=== PATIENT | female | born 1985 | race Caucasian/White ===

== ENCOUNTER 2017-01-28 18:48 | Inpatient (IN) | payer OTHER ==
--- NOTE | ~2017-01-28 | CR72 ---
[facility] A Service of [facility] RADIOLOGY TEXT RESULTS PATIENT: YAYO YODER LOCATION: [address] : [birth year] UNIT #: [id number] AGE: [address]: Heather Byrne MD SEX: F ORDER DR: [id number] [facility] [address] [facility]. [place], [place] [address] [id number] I MR#: [id number] Acc #: [id number] NAME: YAYO YODER : 1985 SEX: F STUDY DATE/TIME: 02/02/2017 5:02 UNIT: [facility] ROOM: [facility] STUDY DESCRIPTION: CR Chest Single View Portable Attending Physician: Heather Byrne M.D. Ordering Physician: Samira Chiu M.D. Primary Care Physician: No Primary Care Physician MEDICAL IMAGING REPORT This report is preliminary unless electronic signature is present EXAM AP portable chest. DATE OF EXAM 02/02/2017 at 05:02. HISTORY Intubated. Shortness of breath. Pneumonia. Septic SI joints. Symptoms began 01/29/2017. COMPARISON AP portable chest, 02/01/2017. FINDINGS Diffuse interstitial and alveolar disease changes of the right lung appears slightly increased in the right upper lobe. The left basilar airspace disease appears new or increasing when compared to prior exam. There is a probable small right pleural effusion which is stable. Heart size is stable. ET tube remains approximately 2.3 cm above the sarbjit. Enteric feeding tube extends below the diaphragm, with the tip not included in the field of view. IMPRESSION 1. Right toi-po-nhvbw lung zone airspace disease with small right pleural effusion appears unchanged. There appears to be new or increasing airspace disease in the retrocardiac left lower lobe. 2. Supporting lines and tubes appear stable. No visible pneumothorax. Dictated by... Jenn Stern M.D. THIS IS AN ELECTRONICALLY VERIFIED REPORT [facility] A Service of [facility] RADIOLOGY TEXT RESULTS PATIENT: YAYO YODER LOCATION: [address] : [birth year] UNIT #: [id number] AGE: [address]: Heather Byrne MD SEX: F ORDER DR: Jenn Stern M.D. at 02/03/2017 9:59 PM ATA/gala TD: 02/02/2017 23:48 JOB #: [id number] MEDICAL IMAGING REPORT COPY
--- NOTE | ~2017-01-28 | CT57 ---
[facility] A Service of [facility] RADIOLOGY TEXT RESULTS PATIENT: YAYO YODER LOCATION: [address] : [birth year] UNIT #: [id number] AGE: [address]: Heather Byrne MD SEX: F ORDER DR: [id number] [facility] [address] [facility]. [place], [place] [address] [id number] I MR#: [id number] Acc #: [id number] NAME: YAYO YODER : 1985 SEX: F STUDY DATE/TIME: UNIT: [facility] ROOM: [facility] STUDY DESCRIPTION: CT Chest Wo Cont Attending Physician: Heather Byrne M.D. Ordering Physician: Samira Chiu M.D. Primary Care Physician: No Primary Care Physician MEDICAL IMAGING REPORT This report is preliminary unless electronic signature is present EXAM CT chest without contrast 02/06/2017 1248 hours HISTORY 31-year-old woman with history of pneumonia since 01/29/2017. Patient complains of shortness of air and cough for [address] chest 01/29/2017 TECHNIQUE Helical noncontrasted images were obtained from the lung apices through the adrenal glands. Sagittal and coronal reconstructions were performed. Total exam DLP 768 mGy-cm. This CT exam was performed with one or more of the following radiation dose reduction techniques: Automatic exposure control, adjustment of mA and/or kV according to patient size, and iterative reconstruction. FINDINGS Images through the thoracic inlet demonstrate no thyroid lesion. There is a left central venous catheter with tip at junction of SVC and right atrium. There is an enteric tube present with tip extending towards the duodenum. There is trace pericardial fluid. There are small dependent bilateral pleural effusions similar to prior study. There is no definite adenopathy. There are bilateral breast implants with increase in diffuse subcutaneous edema over the chest wall and lateral chest extending into the flanks of the abdomen right greater than left suggesting anasarca which is new or increased. The lungs demonstrate interval improvement in the cavitary nodules. There is some linear bandlike scarring at site of previous upper lobe nodules. In the left upper lobe there was a 1.9 cm ground-glass nodule which is now a 1.6 cm cavitary nodule. Other smaller cavitary lesions now have STS. [facility] A Service of [facility] RADIOLOGY TEXT RESULTS PATIENT: YAYO YODER LOCATION: [facility]IC[facility]2 CICCU2-11 : [birth year] UNIT #: [id number] AGE: [address]: Heather Byrne MD SEX: F ORDER DR: resolved or represent a band-like density. There is a new area of ovoid density in the lateral pleura of the lingula on image 31 measuring 1.6 cm. There are persistent airspace changes right greater than left lung base somewhat improved. This could represent pneumonia or atelectasis. Pneumonia is favored on the right. Atelectasis on the left. Limited views through the upper abdomen demonstrate no definite liver or adrenal lesion. There is a small amount of ascites which is also new. Mild splenomegaly persists. IMPRESSION 1. Chest CT demonstrates improvement of the bilateral pulmonary parenchymal nodules some of which were cavitary. Previous nodules which were not cavitary have decreased in size and cavitated since 01/29/2017. The previous nodules which were previously cavitary have decreased and now represent linear band-like areas of scar. There are persistent small dependent pleural effusions with bibasilar airspace changes right greater than left. Basilar changes could represent atelectasis or pneumonia. Infection is favored at the right base with atelectasis favored at the left base. 2. There is a new noncavitary nodule laterally in the lingula on image 31 measuring 1.6 cm. These nodules most likely represents septic emboli. 3. There is diffuse anasarca over the chest and upper abdomen with new ascites in the abdomen. Etiology for this is not clear. STAT * RESULT Dictated by... Arielle Kan M.D. THIS IS AN ELECTRONICALLY VERIFIED REPORT Arielle Kan M.D. at 02/06/2017 2:31 PM CAITLIN/juvenal TD: 02/06/2017 13:38 JOB #: [id number] MEDICAL IMAGING REPORT COPY
--- NOTE | ~2017-01-28 | CO ---
Unit #: [id number] #: [id number] Patient: YAYO YODER [id number] [address] [address] [id number] I MR#: [id number] NAME: YAYO YODER ROOM: 22643 Age: 31 Sex: F Admission Date: 01/29/2017 : 1985 Attending Physician: Matthew Cid M.D. Primary Care Physician: No Primary Care Physician Consultation Date: 01/29/2017 CONSULTATION REPORT REASON FOR CONSULTATION Possible left hip septic arthritis. HISTORY OF PRESENT ILLNESS Yayo is a 31-year-old female who presented to the emergency room with sepsis and left low back pain radiating down her leg. Apparently it has been going on for a couple of months. On examination she notes significant pain. She is not answering questions or providing history on presentation today. PAST MEDICAL AND SURGICAL HISTORY Unable to obtain. MEDICATIONS Unable to obtain. SOCIAL HISTORY Unable to obtain. ALLERGIES Unable to obtain. REVIEW OF SYSTEMS Unable to obtain. PHYSICAL EXAMINATION GENERAL: This is a sick-appearing 31-year-old female in the emergency room on multiple monitors and a central line. She is in no acute distress but does appear ill. HEAD/NECK: Head is atraumatic and normocephalic. Cervical spine midline. Mucous membranes are dry. She is able to move her head and neck without difficulty. LUNGS: Breathing is shallow. CARDIAC: Pulse is tachycardic but regular rhythm. ABDOMEN: Nondistended and nontender. EXTREMITIES: No clubbing, cyanosis or edema of the extremities. No appreciable skin lesions. There is tenderness to palpation of the left shoulder and pain with motion of the left shoulder. She also has discomfort with motion of the left lower extremity, particularly in the hip region. DIAGNOSTIC STUDIES IMAGING: MRI of the lumbar spine and sacrum reviewed. There appears to Unit #: [id number] #: [id number] Patient: YAYO YODER be a left septic sacroiliac join and iliacus abscess. IMPRESSION A 31-year-old female with sepsis and left septic sacroiliac joint and iliacus abscess. PLAN With regard to the septic SI joint and iliacus abscess, I would have Spine see her as well as possibly have an IR aspiration if indicated. Currently she needs medical support and will be going to the ICU. We will further evaluate the left shoulder depending on symptoms. This was discussed with the nurse. Further recommendations to follow. Dictated by... Jackson Bird M.D. BREANN/jyoti TD: 01/29/2017 17:49 JOB #: [id number] CONSULTATION REPORT X X CONSULTATION REPORT
--- NOTE | ~2017-01-28 | MR112 ---
[facility] A Service of [facility] RADIOLOGY TEXT RESULTS PATIENT: YAYO YODER [facility] [birth year] UNIT #: [id number] AGE: [address]: Matthew Cid MD SEX: F ORDER DR: [id number] [facility] [address] [facility]. [place], [place] [address] [id number] I MR#: [id number] Acc #: [id number] NAME: YAYO YODER : 1985 SEX: F STUDY DATE/TIME: 01/29/2017 00:33 UNIT: [facility] ROOM: 18164 STUDY DESCRIPTION: MR Lumbar WWo Contrast Attending Physician: Matthew Cid M.D. Ordering Physician: Lyle King Aprn Primary Care Physician: No Primary Care Physician MEDICAL IMAGING REPORT This report is preliminary unless electronic signature is present EXAM MR lumbar spine 01/29/2017 at 02:55. INDICATIONS Low back pain radiating to the legs intermittently for 2 months. Patient is a heroin user. TECHNIQUE Axial and sagittal multi-sequence images were obtained through the lumbar spine in a high field strength magnet before and after the IV administration of 14 mL of MultiHance contrast. COMPARISON No comparison MRI. FINDINGS Lumbar alignment is normal. Bone marrow signal is normal. There are no compression fractures. Conus terminates at the L1 level and is normal in caliber and signal intensity. The intervertebral discs are normal. No bulging or herniation is seen. There is no central canal or neural foraminal stenosis. No pathologic contrast enhancement is seen in the spine to suggest osteomyelitis or epidural abscess. There is an abnormal appearance to the left sacroiliac joint. This is incompletely evaluated. Please see the MRI sacrum report, dictated separately. This probably reflects septic arthritis. IMPRESSION 1. Lumbar spine MRI is normal. 2. No malalignment. No fracture. 3. No abnormal enhancement. No evidence of osteomyelitis or diskitis. No evidence of epidural abscess. 4. Abnormal appearance of the left SI joint is only partially seen. It probably reflects septic arthritis. Please see the MRI sacrum report [facility] A Service of [facility] RADIOLOGY TEXT RESULTS PATIENT: YAYO YODER LOCATION: [address] : [birth year] UNIT #: [id number] AGE: [address]: Matthew Cid MD SEX: F ORDER DR: dictated separately from today. Dictated by... Masood Craft Jr., M.D. THIS IS AN ELECTRONICALLY VERIFIED REPORT Masood Craft Jr., M.D. at 01/29/2017 10:01 PM DAI/kleber TD: 01/29/2017 10:59 JOB #: [id number] MEDICAL IMAGING REPORT COPY
--- NOTE | ~2017-01-28 | CR72 ---
[facility] A Service of [facility] RADIOLOGY TEXT RESULTS PATIENT: YAYO YODER LOCATION: [address] : [birth year] UNIT #: [id number] AGE: [address]: Matthew Cid MD SEX: F ORDER DR: [id number] [facility] [address] [facility]. [place], [place] [address] [id number] I MR#: [id number] Acc #: [id number] NAME: YAYO YODER : 1985 SEX: F STUDY DATE/TIME: 01/31/2017 11:55 UNIT: [facility] ROOM: [facility] STUDY DESCRIPTION: CR Chest Single View Portable Attending Physician: Matthew Cid M.D. Ordering Physician: Samira Chiu M.D. Primary Care Physician: No Primary Care Physician MEDICAL IMAGING REPORT This report is preliminary unless electronic signature is present EXAM Portable chest. HISTORY Evaluate endotracheal tube placement. Followup infiltrates. FINDINGS This portable view of the chest is compared with earlier the same day. Endotracheal tube has been added and the tip is 3 cm above the sarbjit. Right midlung and lower lobe infiltrate and probable right effusion are stable. I believe there is some medial left base infiltrate as well. The Dobbhoff tube has its tip below the diaphragm. Dictated by... Norberto Wang M.D. THIS IS AN ELECTRONICALLY VERIFIED REPORT Norberto Wang M.D. at 01/31/2017 2:17 PM FARHAT/heladio TD: 01/31/2017 13:55 JOB #: [id number] MEDICAL IMAGING REPORT COPY
--- NOTE | ~2017-01-28 | A ---
[facility] Nutrition Therapy DATE: 01/31/17 Patient: YAYO YODER Physician: ADRI Address: [address] [facility] Room/Bed: [address], Zip: [place] [address] Admit Date: 01/29/17 Date of : [birth year] Height: 5 2 Weight: 115 52.5 NUTRITIONAL ASSESSMENT: REASON: Consult re: tube feeding recommendations Admitting Dx: 31 y/o female admitted with septic emboli and PNA PMH: ETOH/meth/heroin abuse, PNA, sciatica, 1 ppd smoker Anthropometrics: Ht: 62", Wt: 52.3 kg (115 lbs), BMI: 21 Labs: Na 131, K+ 3.1, Glucose 125, Phos 2.1 (01/29) Meds: Pitressin (vasopressin), Levophed, NACL, KCL, MGSO4, Solu-cortef, Fentanyl, Versed I/O & Bowel function: LBM 01/30 Skin Integrity: Redness coccyx, track corado SHERWIN arms, no edema Estimated Nutrition Needs: 3439-5187 kcals per day (25-30 kcals/kg) 52-63 g protein per day (1.0-1.2 g/kg) Fluids consistent with kcal needs or per MD Assessment: Chart reviewed, events noted. RD discussed patient with RN earlier today during rounds, she was on room air tolerating a regular diet. RD received consult for EN recs during lunch, spoke with RN on the phone who stated the patient is now intubated. She is sedated with Fentanyl and Versed on 2 pressors. She has hx of regular ETOH/meth/heroin use and was talking about wanting to get clean. She has septic arthritis in her hip, was defiant of care initially but is now participating in her care. 0 points scored on the malnutrition risk screen. Patient is at risk for refeeding syndrome, see recs below. Will follow hospital course. Dx: Inadequate oral intake r/t clinical condition AEB intubation, NPO, need for EN. Intervention: EN recs as stated below Monitoring, Evaluation and Goals: 1. Nutrition support consistent with estimated needs. 2. Labs WNL (lytes, glucose). Monitor: Per protocol, criteria to determine if above goals met [facility] Nutrition Therapy DATE: 01/31/17 Patient: YAYO YODER Physician: ADRI Address: [address] [facility] Room/Bed: [address], Zip: [place] [address] Admit Date: 01/29/17 Date of : [birth year] Height: 5 2 Weight: 115 52.5 Recommendations: 1. Replace K+ and Phos (if needed, Phos low on 01/29). Recheck Phos with next lab draw. 2. Once medically feasible start enteral nutrition with Osmolite 1.5 @ 20 ml/hr. Check lytes q 6 hours and replete to WNL as needed, as the patient is at risk for refeeding syndrome due to hx of drug and alcohol abuse. If lytes are WNL increase feeds by 10 ml q 8 hours until goal rate of 45 ml/hr is reached, to provide 1620 kcals, 68 g protein and 821 ml water. Once at goal rate flush with 200 ml free water QID or per MD noting hyponatremia. RD will follow hospital course Moderate-severe nutrition risk Respectfully, Judith Brown, RD, LD [facility] cc: client file
--- NOTE | ~2017-01-28 | MR158 ---
[facility] A Service of [facility] RADIOLOGY TEXT RESULTS PATIENT: YAYO YODER LOCATION: [facility] [address]-69 : [birth year] UNIT #: [id number] AGE: [address]: Matthew Cid MD SEX: F ORDER DR: [id number] [facility] [address] [place], [place] [address] [id number] I MR#: [id number] Acc #: [id number] NAME: YAYO YODER : 1985 SEX: F STUDY DATE/TIME: 01/29/2017 2:54 UNIT: [facility] ROOM: 76475 STUDY DESCRIPTION: MR Sacrum WWo Contrast Attending Physician: Matthew Cid M.D. Ordering Physician: Lyle King Aprn Primary Care Physician: No Primary Care Physician [facility] CENTER REPORT This report is preliminary unless electronic signature is present. EXAM MRI of the sacrum with without contrast. HISTORY 31-year-old female IV drug abuser, history of MRSA, complains of low back pain off and on for [address] abdomen and pelvis 01/28/2017. TECHNIQUE Multiplanar multiecho imaging was performed of the sacrum utilizing a high field magnet dedicated protocol. Axial T1-weighted images were performed following IV gadolinium. FINDINGS The examination demonstrates marrow edema along both sides of the left SI joint with fluid in the left SI joint. This enhances postcontrast. Anterior to the left SI joint there is a peripherally enhancing fluid collection compatible with a abscess which extends into the left iliacus muscle. Abscess is at least 5 cm cephalocaudal dimension x about 2.3 x 1.5 cm in greatest transverse dimensions. There is also some edema and enhancement within the left deep gluteal musculature. Visualized internal pelvic structures unremarkable. The right SI joint appears normal. Visualized lower lumbar spine unremarkable. Please see separate report of lumbar spine for details. IMPRESSION MRI findings compatible with septic arthritis involving the left SI joint with a sizeable abscess involving the left iliacus muscle as detailed above. Marrow edema and marrow enhancement within the adjacent sacrum and iliac bone could represent reactive changes, though early osteomyelitis not excluded. No gross destruction identified. However, CT scan STS. [facility] A Service of [facility] & [facility] RADIOLOGY TEXT RESULTS PATIENT: YAYO YODER LOCATION: [facility] [address]-47 : [birth year] UNIT #: [id number] AGE: [address]: Matthew Cid MD SEX: F ORDER DR: performed on 01/28/2017 did demonstrate some regional osteopenia, and this could represent early osteolysis and early osteomyelitis. Dictated by... Edson Quintanilla M.D. THIS IS AN ELECTRONICALLY VERIFIED REPORT Edson Quintanilla M.D. at 01/29/2017 4:59 PM MAYTE/kleber TD: 01/29/2017 11:16 JOB #: [id number] MRI CENTER REPORT COPY
--- NOTE | ~2017-01-28 | CR72 ---
[facility] A Service of [facility] RADIOLOGY TEXT RESULTS PATIENT: YAYO YODER LOCATION: [address] : [birth year] UNIT #: [id number] AGE: [address]: Matthew Cid MD SEX: F ORDER DR: [id number] [facility] [address] [facility]. [place], [place] [address] [id number] I MR#: [id number] Acc #: [id number] NAME: YAYO YODER : 1985 SEX: F STUDY DATE/TIME: 01/31/2017 05:03 [facility] STUDY DESCRIPTION: CR Chest Single View Portable Attending Physician: Matthew Cid M.D. Ordering Physician: Crys Vasquez M.D. Primary Care Physician: Primary Care Physician No MEDICAL IMAGING REPORT This report is preliminary unless electronic signature is present EXAM Portable chest 01/31 at 0503 INDICATIONS Sepsis. Shortness of air. Heroin abuser. FINDINGS AP portable chest compared with 01/30/2017. Heart size stable. Left IJ line remains in the SVC. There has been marked interval worsening of consolidations throughout the right lung. There is increasing right pleural fluid. There are faint infiltrates noted in the left uhq-jo-apamv lung. No pneumothorax. Dictated by... Masood Craft Jr., M.D. THIS IS AN ELECTRONICALLY VERIFIED REPORT Masood Craft Jr., M.D. at 01/31/2017 10:03 PM DAI/urvashi TD: 01/31/2017 08:36 JOB #: [id number] MEDICAL IMAGING REPORT COPY
--- NOTE | ~2017-01-28 | CR72 ---
[facility] A Service of [facility] RADIOLOGY TEXT RESULTS PATIENT: YAYO YODER LOCATION: [facility] 553-01 : [birth year] UNIT #: [id number] AGE: [address]: Heather Byrne MD SEX: F ORDER DR: [id number] [facility] [address] [facility]. [place], [place] [address] [id number] I MR#: [id number] Acc #: [id number] NAME: YAYO YODER : 1985 SEX: F STUDY DATE/TIME: 02/06/2017 3:24 UNIT: [facility] ROOM: [facility] STUDY DESCRIPTION: CR Chest Single View Portable Attending Physician: Heather Byrne M.D. Ordering Physician: Samira Chiu M.D. Primary Care Physician: No Primary Care Physician MEDICAL IMAGING REPORT This report is preliminary unless electronic signature is present EXAM AP portable chest DATE 02/06/2017 HISTORY Pneumonia, hypotension, septic emboli. Symptoms began 01/29/2017. IV drug use. AP portable chest 02/05/[address] chest 01/29/2017. FINDINGS Patchy peripheral bilateral zry-qs-muigf lung zone airspace disease with more dense consolidation in the right lower lobe and small layering right pleural effusion again noted. There is improved aeration in the left lower lobe compared to yesterday's exam. Heart size is within normal limits. ET tube has been removed. Dobbhoff tube and left IJ central line remain. No visible pneumothorax. IMPRESSION 1. Patchy peripheral mid to lower lung zone disease with more confluent consolidation in the right lower lobe and small right pleural effusion. Correlate clinically for pneumonia and/or of pulmonary emboli. The left lower lobe aeration appears improved compared to 02/05/2017. 2. ET tube has been removed. 3. No visible pneumothorax. Dictated by... Jenn Stern M.D. THIS IS AN ELECTRONICALLY VERIFIED REPORT [facility] A Service of [facility] RADIOLOGY TEXT RESULTS PATIENT: YAYO YODER LOCATION: [facility] 553-01 : [birth year] UNIT #: [id number] AGE: [address]: Heather Byrne MD SEX: F ORDER DR: Jenn Stern M.D. at 02/06/2017 10:25 PM ATA/markell TD: 02/06/2017 12:26 JOB #: [id number] MEDICAL IMAGING REPORT COPY
--- NOTE | ~2017-01-28 | CT4 ---
[facility] A Service of [facility] RADIOLOGY TEXT RESULTS PATIENT: YAYO YODER LOCATION: [facility] [address]-71 : [birth year] UNIT #: [id number] AGE: [address]: Matthew Cid MD SEX: F ORDER DR: [id number] [facility] [address] [place], [place] [address] [id number] I MR#: [id number] Acc #: [id number] NAME: YAYO YODER : 1985 SEX: F STUDY DATE/TIME: 01/28/2017 20:58 UNIT: [facility] ROOM: 26023 STUDY DESCRIPTION: CT Abd and Pelv Wo Cont Attending Physician: Matthew Cid M.D. Ordering Physician: Ed Dane Victoria M.D. Primary Care Physician: No Primary Care Physician MEDICAL IMAGING REPORT This report is preliminary unless electronic signature is present EXAMINATION CT abdomen and pelvis without contrast. DATE 01/28/2017 HISTORY Low back pain radiating to left leg. Left side pain. Symptoms present 2 months intermittently. COMPARISON No prior CT abdomen and pelvis for comparison at this institution. PROCEDURE 3 mm noncontrast axial images through the abdomen and pelvis. Enteric contrast was not administered. This CT exam was performed with one or more of the following radiation dose reduction techniques: automatic exposure control, adjustment of mA and/or kV according to patient size, and iterative reconstruction. FINDINGS ABDOMEN FINDINGS: The spleen is enlarged measuring 14.3 cm craniocaudal. No focal splenic lesion is identified. The noncontrast appearance of the liver, gallbladder, pancreas, adrenals and kidneys is within normal limits. No urinary tract stone or hydronephrosis is seen. Patchy peripheral nodular densities are demonstrated within both lower lung zones, with subpleural cystic or cavitary lesions bilaterally which are nonspecific and could represent changes of septic pulmonary emboli. Bilateral breast augmentation changes are present. Zjhgykvk-ux-hvxds stool burden in the ascending and transverse colon. No obstructing etiology is seen. No abnormal small bowel dilation. No [facility] A Service [facility] RADIOLOGY TEXT RESULTS PATIENT: YAYO YODER LOCATION: [facility] [id number] : [birth year] UNIT #: [id number] AGE: [address]: Matthew Cid MD SEX: F ORDER DR: pathologically enlarged lymph nodes are identified. PELVIS FINDINGS: Urinary bladder, uterus and rectum are within normal limits. No pelvic adenopathy or free fluid is seen. Abnormal appearance of left sacroiliac joint with what appears to be lucency or bony demineralization along both the sacral and iliac margins. Lumbar spine appears unremarkable. IMPRESSION 1. Abnormal appearance of the left sacroiliac joint with lucency or bony demineralization along both the sacral and iliac margins of the joint. Findings are nonspecific. All findings could be related to a somewhat unusual manifestation of degenerative change, it could represent SI joint infection in the appropriate clinical context. MRI may prove helpful for further evaluation if deemed clinically appropriate. 2. Splenomegaly, 14.3 cm. No focal splenic lesion. 3. Patchy peripheral nodular densities within the bilateral lower lobes. Thin-walled cystic or cavitary lesions are also demonstrated predominately within the right middle lobe and right lower lobe. The findings are nonspecific but may represent changes of septic pulmonary emboli. 4. Moderate to large ascending and transverse colonic stool burden. Correlate for constipation symptoms. Dictated by... Jenn Stern M.D. THIS IS AN ELECTRONICALLY VERIFIED REPORT Jenn Stern M.D. at 01/29/2017 2:09 PM ATA/juan m TD: 01/29/2017 09:34 JOB #: [id number] MEDICAL IMAGING REPORT COPY
--- NOTE | ~2017-01-28 | CT57 ---
[facility] A Service of [facility] RADIOLOGY TEXT RESULTS PATIENT: YAYO YODER LOCATION: [address] : [birth year] UNIT #: [id number] AGE: [address]: Matthew Cid MD SEX: F ORDER DR: [id number] [facility] [address] [place], [place] [address] [id number] I MR#: [id number] Acc #: [id number] NAME: YAYO YODER : 1985 SEX: F STUDY DATE/TIME: 01/29/2017 20:04 UNIT: [facility] ROOM: [facility] STUDY DESCRIPTION: CT Chest Wo Cont Attending Physician: Matthew Cid M.D. Ordering Physician: John Smith M.D. Primary Care Physician: Primary Care Physician No MEDICAL IMAGING REPORT This report is preliminary unless electronic signature is present EXAM CT chest without contrast 01/29/2017 at 20:04 HISTORY Sepsis, shortness of breath since 01/29/2017. Pneumonia. COMPARISON AP portable chest 01/29/2017 at 10:[address]. [address] prior CT chest for comparison. TECHNIQUE This CT examination was performed with one or more of the following radiation dose reduction techniques: automatic exposure control, adjustment of mA and/or kV according to patient size, and iterative reconstruction. PROCEDURE 5 mm axial images through the chest without contrast. Sagittal and coronal reformatted images were obtained. FINDINGS Multifocal patchy and somewhat nodular densities are scattered throughout both lungs. What appear to be cystic or cavitary changes are seen peripherally in both lungs. Findings are nonspecific but may represent changes of septic emboli. More dense consolidative type changes are present within the bilateral lower lobes with small bilateral pleural effusions. Bilateral breast implants are in place. Left IJ central line extends to the inferior vena cava - right atrial junction. Heart size is within normal limits. There is mild upper abdominal ascites. Pericholecystic fluid is present which is nonspecific and could simply represent ascites. Cholecystitis [facility] A Service of [facility] RADIOLOGY TEXT RESULTS PATIENT: YAYO YODER LOCATION: [address] : [birth year] UNIT #: [id number] AGE: [address]: Matthew Cid MD SEX: F ORDER DR: cannot be excluded based upon this imaging study alone. Spleen is enlarged up to 13.9 cm craniocaudally. There is mild generalized body wall edema. No acute osseous abnormalities are identified. IMPRESSION 1. Dense airspace disease changes in bilateral lower lobes. Correlate clinically for pneumonia. 2. More patchy nodular densities are scattered throughout both lungs, and there are cavitary type nodular densities scattered throughout both lungs, raising the possibility of septic emboli. 3. Small bilateral pleural effusions. 4. Upper abdominal ascites. 5. Small quantity of pericholecystic fluid is present. This may simply represent aforementioned ascites. Cholecystitis cannot be excluded based upon imaging findings alone. Clinically correlate. 6. Mild splenomegaly. 7. Left IJ central line tip extends to the inferior vena cava - right atrial junction. Dictated by... Jenn Stern M.D. THIS IS AN ELECTRONICALLY VERIFIED REPORT Jenn Stern M.D. at 01/30/2017 10:01 AM ATA/shelly TD: 01/30/2017 08:57 JOB #: [id number] MEDICAL IMAGING REPORT COPY
--- NOTE | ~2017-01-28 | HP ---
Unit #: [id number] #: [id number] Patient: YAYO YODER [id number] [address] [place], [place] [address] [id number] I MR#: [id number] NAME: YAYO YODER ROOM: [facility] Age: 31 Sex: F Admission Date: 01/29/2017 : 1985 Attending Physician: Matthew Cid M.D. Primary Care Physician: Primary Care Physician No HISTORY AND PHYSICAL CHIEF COMPLAINT Back pain. HISTORY OF PRESENT ILLNESS The patient is a 31-year-old female who presents to [facility] emergency department with complaint of back pain and fever. It has been progressive over two to three days. The pain is severe and has no alleviating factors at this time. She denies nausea, vomiting and diarrhea. She states that she does feel lightheaded with standing. PAST MEDICAL HISTORY 1. Sciatica. 2. History of pneumonia. PAST SURGICAL HISTORY History of breast augmentation. HOME MEDICATIONS None. ALLERGIES Latex. SOCIAL HISTORY The patient smokes a pack a day. Uses heroin and drinks alcohol regularly. FAMILY HISTORY Patient denies any significant family medical history. REVIEW OF SYSTEMS A 10-point review of systems was obtained and negative except as per HPI. PHYSICAL EXAMINATION VITAL SIGNS: Temperature 101, pulse 115, blood pressure 74/43. GENERAL: This is a 31-year-old female in moderate distress secondary to pain who appears stated age. HEENT: Pupils equally round. Extraocular movements are intact. Mucous membranes are dry. NECK: Supple. No JVD, no lymphadenopathy. HEART: Regular rate and rhythm, 3/6 systolic ejection murmur. LUNGS: Bilateral rhonchi with equal air entry bilaterally. ABDOMEN: Diffusely tender to palpation, nondistended, soft. No hepatosplenomegaly. Unit #: [id number] #: [id number] Patient: YAYO YODER EXTREMITIES: No clubbing, cyanosis, or edema. Warm and dry. PSYCHIATRIC: Alert and oriented x3. Affect is appropriate. NEUROLOGIC: Cranial nerves II-XII are intact grossly. The patient moves all extremities equally and with purpose. SKIN: No rashes, bruises, or ulcers. MUSCULOSKELETAL: She has lumbar and sacral pain on palpation with no swelling or redness. DIAGNOSTIC STUDIES LABORATORY: Potassium 2.6, calcium 7.9 with an albumin of 2.3. White count 5.2, hemoglobin 8.1, platelets 62. Tox screen positive for amphetamines and marijuana. IMAGING: MR of the lumbar spine and sacrum show septic arthritis of the left SI joint and a sizable abscess involving the left iliacus muscle. ASSESSMENT AND PLAN 1. Septic shock. The patient is being aggressively fluid resuscitated and antibiotics have been started. She is also on pressors at this time. 2. Septic arthritis. The patient has been started on vancomycin and Rocephin. 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 The patient has been started on antibiotics as mentioned above. 4. Prophylaxis. The patient has been started on SCDs. 5. Acute hypoxic respiratory failure. This is likely secondary to septic emboli from her vegetation. As mentioned above, the patient has been started on antibiotics. She has also been started on oxygen to maintain saturations greater than 90%. 6. Pneumonia. The patient likely has pneumonia from her septic emboli and has been started on antibiotics. Dictated by Matthew Cid M.D. MARINA/taye TD: 01/30/2017 21:02 JOB #: [id number] HISTORY AND PHYSICAL X Matthew Cid MD HISTORY AND PHYSICAL
--- NOTE | ~2017-01-28 | FU ---
[facility] Nutrition Therapy DATE: 02/04/17 Patient: YAYO YODER Physician: MORCAR Address: [address] [place] [address] Room/Bed: [address], Zip: [place] [address] Admit Date: 01/29/17 Date of : [birth year] Height: 5 2 Weight: 154 70 NUTRITION MONITORING/FOLLOW-UP: Reason: Enteral nutrition follow-up Anthropometrics: Ht: 62", admission wt: 52.3 kg, current wt: 70 kg Labs: Glucose 141, POC 109 Meds: MGSO4, NACL, KCL, Solu-Cortef I&O's: 2115/1444, last BM 01/31 Skin: No new issues, generalized edema whole body Estimated Nutrition Needs: 7067-0120 kcals/day (25-30 kcals/kg admission wt) 52-63 g protein per day (1.0-1.2 g/kg admission wt) Fluids consistent with kcal needs or per MD Assessment: Chart reviewed, events noted. Patient remains intubated, to get bronch today, possible extubation later. Pressors and propofol off at this time, EN off due to bronch, RN states patient has previously been tolerating enteral feeds @ goal with no issues (Osmolite 1.5 @ 45 ml/hr). RN also noted decreased UOP, MD notified. Note weight increase likely due to generalized edema all over body. Previous nutrition goals met, nutrition diagnosis remains. See recs below, will continue to follow. Dx: Inadequate oral intake r/t clinical condition AEB intubation, NPO status, need for EN - ACTIVE Intervention: Resume EN vs diet if extubated Monitoring, Evaluation and Goals: MET 1. Nutrition support to provide > 80% goal volume x 24 hours vs tolerance of diet advancement if extubated. 2. Labs WNL. Monitor: Per protocol, criteria to determine if above goals met Recommendations: 1. If the patient is extubated today advance to regular diet per CHIEF CLINICAL DIETITIAN for safety. [facility] Nutrition Therapy DATE: 02/04/17 Patient: YAYO YODER Physician: MORCAR Address: [address] [place] [address] Room/Bed: [address], Zip: [place] [address] Admit Date: 01/29/17 Date of : [birth year] Height: 5 2 Weight: 154 70 2. If the patient is to remain intubated restart enteral feeds after bronch today: If the patient is not put back on any pressors and MAP is > 60 can change feeding formula to standard formula which is Jevity 1.5. Goal rate with Jevity 1.5 is 45 ml/hr. If MAP is not > 60 restart feeds with Osmolite 1.5 goal rate 45 ml/hr. Status: Moderate nutrition risk Respectfully, Judith Brown RD, LD [facility] and Nutrition[facility] cc: client file
--- NOTE | ~2017-01-28 | CR72 ---
[facility] A Service of [facility] RADIOLOGY TEXT RESULTS PATIENT: YAYO YODER LOCATION: [address] : [birth year] UNIT #: [id number] AGE: [address]: Matthew Cid MD SEX: F ORDER DR: [id number] [facility] [address]. [place], [place] [address] [id number] I MR#: [id number] Acc #: [id number] NAME: YAYO YODER : 1985 SEX: F STUDY DATE/TIME: 02/01/2017 8:44 UNIT: [facility] ROOM: [facility] STUDY DESCRIPTION: CR Chest Single View Portable Attending Physician: Matthew Cid M.D. Ordering Physician: Ed Dane Victoria M.D. Primary Care Physician: No Primary Care Physician MEDICAL IMAGING REPORT This report is preliminary unless electronic signature is present EXAM Portable chest, 02/01/2017. COMPARISON STUDIES 01/31/2017. HISTORY Follow-up endotracheal tube and pneumonia. FINDINGS This portable view of the chest is unchanged from yesterday's study with some dense right lower lobe infiltrate and right effusion. The endotracheal tube tip is 1 cm above the sarbjit. The heart size is normal. Dictated by... Norberto Wang M.D. THIS IS AN ELECTRONICALLY VERIFIED REPORT Norberto Wang M.D. at 02/01/2017 1:13 PM FARHAT/brent TD: 02/01/2017 11:30 JOB #: [id number] MEDICAL IMAGING REPORT COPY
--- NOTE | ~2017-01-28 | CR72 ---
[facility] A Service of [facility] RADIOLOGY TEXT RESULTS PATIENT: YAYO YODER LOCATION: [address] : [birth year] UNIT #: [id number] AGE: [address]: Heather Byrne MD SEX: F ORDER DR: [id number] [facility] [address]. [place], [place] [address] [id number] I MR#: [id number] Acc #: [id number] NAME: YAYO YODER : 1985 SEX: F STUDY DATE/TIME: 02/03/2017 4:39 UNIT: [facility] ROOM: [facility] STUDY DESCRIPTION: CR Chest Single View Portable Attending Physician: Heather Byrne M.D. Ordering Physician: Samira Chiu M.D. Primary Care Physician: Primary Care Physician No MEDICAL IMAGING REPORT This report is preliminary unless electronic signature is present EXAM AP portable chest 02/03/2017 HISTORY Shortness of breath, pneumonia, intubated. Septic SI joints. Symptoms began 01/29/2017. COMPARISON AP portable chest 02/02/2017 FINDINGS Interstitial and alveolar disease changes diffusely throughout the right lung, greatest in the right lower lobe, and more confluent in the left lower lobe, without significant change from one day prior. Heart size is within normal limits. No pneumothorax is visible. ET tube, Dobbhoff tube and left subclavian central line appear stable in position. IMPRESSION Right lung interstitial and alveolar disease changes and left lower lobe consolidation without significant change from 1 day prior. Supporting lines and tubes appear stable. Dictated by... Jenn Stern M.D. THIS IS AN ELECTRONICALLY VERIFIED REPORT Jenn Stern M.D. at 02/03/2017 9:58 PM ATA/urvashi TD: 02/03/2017 13:20 JOB #: [id number] MEDICAL IMAGING REPORT [facility] A Service of [facility] RADIOLOGY TEXT RESULTS PATIENT: YAYO YODER [address] : [birth year] UNIT #: [id number] AGE: [address]: Heather Byrne MD SEX: F ORDER DR: RU
--- NOTE | ~2017-01-28 | OR ---
Unit #: [id number] #: [id number] Patient: YAYO YODER [id number] [address] [address] [id number] I MR#: [id number] NAME: YAYO YODER ROOM: [facility] Date of Procedure: Admission Date: 01/29/2017 Surgeon: Samira Chiu M.D. : 1985 Attending Physician: Heather Byrne M.D. Primary Care Physician: Lina Primary Care Physician PROCEDURE OPERATIVE NOTE PROCEDURE Diagnostic bronchoscopy. INDICATION Pneumonia. PRE-PROCEDURE DIAGNOSIS Pneumonia. POST PROCEDURE DIAGNOSIS Pneumonia. DETAILS OF THE PROCEDURE After taking consent from the patient and family explaining the risks and benefits, the patient was placed in a proper position. We Bronchoscope introduced through the endotracheal tube which was sitting well above the sarbjit. We examined right upper, right middle, right lower lobe, left upper lobe, lingula and left lower lobe. No endobronchial lesion was found. There were thick, mucoid secretions in both lungs which were therapeutically suctioned. Then, we did a bronchoalveolar lavage in the right lower lobe with 90 mL saline in and 20 mL back. Patient tolerated the procedure very well. No complications happened. Dictated by... Ana Stearns/arnaldo TD: 02/04/2017 13:04 JOB #: [id number] PROCEDURE OPERATIVE NOTE X Samira Chiu MD X PROCEDURE OPERATIVE NOTE
--- NOTE | ~2017-01-28 | OR ---
Unit #: [id number] #: [id number] Patient: YAYO YODER [id number] [address] [address] [id number] I MR#: [id number] NAME: YAYO YODER ROOM: [facility] Date of Procedure: 01/31/2017 Admission Date: 01/29/2017 Surgeon: Samira Chiu M.D. : 1985 Attending Physician: Matthew Cid M.D. Primary Care Physician: Lina Primary Care Physician PROCEDURE OPERATIVE NOTE PROCEDURE PERFORMED Endotracheal intubation. INDICATION FOR PROCEDURE Respiratory failure. PREPROCEDURE DIAGNOSIS Respiratory failure. POSTPROCEDURE DIAGNOSIS Respiratory failure. DETAILS OF PROCEDURE After placing the patient in appropriate position, with the help of a size 4 Mac laryngoscope, under direct visualization, a size 7.5 endotracheal tube was passed through the vocal cords. Good color change on End Tidal CO2 monitor. Chest x-ray was ordered. Procedure performed by Farheen Rodriguez A.P.R.N., and I was present during the whole procedure. The patient was given 20 mg of etomidate, 4 mg of Versed and 100 mg of succinylcholine for the procedure as sedation. Dictated by... Ana Stearns/julee TD: 01/31/2017 12:44 JOB #: [id number] PROCEDURE OPERATIVE NOTE X Samira Chiu MD PROCEDURE OPERATIVE NOTE
--- NOTE | ~2017-01-28 | CR72 ---
[facility] A Service of [facility] RADIOLOGY TEXT RESULTS PATIENT: YAYO YODER LOCATION: [place] [address]-11 : [birth year] UNIT #: [id number] AGE: [address]: Heather Byrne MD SEX: F ORDER DR: [id number] [facility] [address] [place], [place] [address] [id number] I MR#: [id number] Acc #: [id number] NAME: YAYO YODER : 1985 SEX: F STUDY DATE/TIME: 02/05/2017 4:28 UNIT: [facility] ROOM: [facility] STUDY DESCRIPTION: CR Chest Single View Portable Attending Physician: Heather Bryne M.D. Ordering Physician: Samira Chiu M.D. Primary Care Physician: Primary Care Physician No MEDICAL IMAGING REPORT This report is preliminary unless electronic signature is present EXAM Portable chest DATE 02/05/2017 at 04:28 HISTORY Septic left SI joint with abscess. Pneumonia, hypertension and septic pulmonary emboli. Symptoms began 01/29/2017. COMPARISON AP portable chest 02/04/[address] chest 01/29/2017 FINDINGS Patchy alveolar disease changes are present in both lungs with relative sparing of the lung apices, without significant change from 1 day prior. Some of the opacity within the lung bases in particular has a somewhat nodular appearance in keeping with previous stated history of septic pulmonary emboli. No definite pneumothorax. Stable mild cardiac enlargement. ET tube, Dobbhoff tube and left IJ central line appear unchanged. IMPRESSION Patchy alveolar disease changes in the oam-sz-zlfve lung zones in keeping with this patient's stated history of pneumonia or septic pulmonary emboli, without significant change from 1 day prior. Dictated by... Jnen Stern M.D. THIS IS AN ELECTRONICALLY VERIFIED REPORT Jenn Stern M.D. at 02/06/2017 1:51 AM [facility]/to [facility] A Service of [facility] RADIOLOGY TEXT RESULTS PATIENT: YAYO YODER LOCATION: [address] : [birth year] UNIT #: [id number] AGE: [address]: Heather Byrne MD SEX: F ORDER DR: TD: 02/05/2017 11:50 JOB #: [id number] MEDICAL IMAGING REPORT COPY
--- NOTE | ~2017-01-28 | CR72 ---
[facility] A Service of [facility] RADIOLOGY TEXT RESULTS PATIENT: YAYO YODER LOCATION: [address] : [birth year] UNIT #: [id number] AGE: [address]: Heather Byrne MD SEX: F ORDER DR: [id number] [facility] [address] [facility]. [place], [place] [address] [id number] I MR#: [id number] Acc #: [id number] NAME: YAYO YODER : 1985 SEX: F STUDY DATE/TIME: 02/04/2017 4:59 UNIT: [facility] ROOM: [facility] STUDY DESCRIPTION: CR Chest Single View Portable Attending Physician: Heather Byrne M.D. Ordering Physician: Samira Chiu M.D. Primary Care Physician: Primary Care Physician No MEDICAL IMAGING REPORT This report is preliminary unless electronic signature is present EXAM AP portable chest date: 02/04/2017 at 04:59 HISTORY Pneumonia, hypertension, septic pulmonary embolism. Symptoms began 01/29/2017, septic left sacroiliac joint with abscess. IV drug use. COMPARISON AP portable chest 02/03/2017 FINDINGS Airspace disease changes within both lungs appear approved. Persistent filtrates do remain within the right fdn-lm-jsbju lung zone and within the left base, however. Heart size is stable. ET tube, left IJ central line, Dobbhoff tube appear changed. No visible pneumothorax. IMPRESSION 1. Airspace disease in the right lub-uf-ufrfb lung zone and left base appear improved slightly since the 02/03/2017 examination. Correlate clinically for improving pneumonia symptoms. 2. Supporting lines and tubes appear stable. No pneumothorax is seen. Dictated by... Jenn Stern M.D. THIS IS AN ELECTRONICALLY VERIFIED REPORT Jenn Stern M.D. at 02/04/2017 10:02 PM ATA/urvashi TD: 02/04/2017 08:51 JOB #: [id number] MEDICAL IMAGING REPORT [facility] A Service of [facility] & [facility] RADIOLOGY TEXT RESULTS PATIENT: YAYO YODER LOCATION: [facility]2-11 : [birth year] UNIT #: [id number] AGE: [address]: Heather Byrne MD SEX: F ORDER DR: COPY
--- NOTE | ~2017-01-28 | CR72 ---
[facility] A Service of [facility] / [facility] RADIOLOGY TEXT RESULTS PATIENT: YAYO YODER LOCATION: [facility] [address]-53 : [birth year] UNIT #: [id number] AGE: [address]: Matthew Cid MD SEX: F ORDER DR: [id number] [facility] [address] [place], [place] [address] [id number] I MR#: [id number] Acc #: [id number] NAME: YAYO YODER : 1985 SEX: F STUDY DATE/TIME: 01/29/2017 10:50 UNIT: [facility] ROOM: 66032 STUDY DESCRIPTION: CR Chest Single View Portable Attending Physician: Matthew Cid M.D. Ordering Physician: Lyle King Aprn Primary Care Physician: No Primary Care Physician MEDICAL IMAGING REPORT This report is preliminary unless electronic signature is present EXAM Portable chest x-ray, 01/29/2017. HISTORY Short of air. Central line placement. FINDINGS AP radiograph of the chest is presented. Comparison 01/04/2017. Left internal jugular approach central venous catheter terminates in the lower right atrium. For placement entirely within the superior vena cava, it should be withdrawn approximately 4 cm and reassessed radiographically. Some of its somewhat low/distal positioning may be artifactual and related to low lung volumes. Mild cardiac enlargement. Lung volumes low. Borderline pulmonary vascular prominence. Peribronchial markings are increased. Correlate with any known reactive airway disease or indication of acute reactive airway disease or bronchitis. Mildly increased interstitial densities. Patchy airspace densities in the bilateral mid to lower lung zones. In the appropriate clinical contest, mild to moderate pulmonary edema with interstitial and airspace components could be considered. Bilateral pneumonia could be considered. No dense airspace disease, pleural effusion, or pneumothorax. No suspicious nodule. Dictated by... Matthew Alarcon M.D. THIS IS AN ELECTRONICALLY VERIFIED REPORT Matthew Alarcon M.D. at 01/29/2017 5:41 PM KLAUS/brent [facility] A Service of [facility] / [facility] RADIOLOGY TEXT RESULTS PATIENT: YAYO YODER LOCATION: [facility] [address]-72 : [birth year] UNIT #: [id number] AGE: [address]: Matthew Cid MD SEX: F ORDER DR: TD: 01/29/2017 14:18 JOB #: [id number] MEDICAL IMAGING REPORT COPY
--- NOTE | ~2017-01-28 | CR63 ---
[facility] A Service of [facility] & [facility] RADIOLOGY TEXT RESULTS PATIENT: YAYO YODER LOCATION: [place] [address] : [birth year] UNIT #: [id number] AGE: [address]: Heather Byrne MD SEX: F ORDER DR: [id number] [facility] [address] [place], [place] [address] [id number] I MR#: [id number] Acc #: [id number] NAME: YAYO YODER : 1985 SEX: F STUDY DATE/TIME: 02/07/2017 7:38 UNIT: [facility] ROOM: [facility] STUDY DESCRIPTION: CR Chest 2 View Attending Physician: Heather Byrne M.D. Ordering Physician: Samira Chiu M.D. Primary Care Physician: Primary Care Physician No MEDICAL IMAGING REPORT This report is preliminary unless electronic signature is present EXAM Chest 2 views INDICATION Chest pain. Cough and shortness of air for 3 weeks. FINDINGS PA and lateral views of the chest compared to CT chest dated 02/06/2017 and chest radiograph dated 02/06/2017. The enteric tube has been removed. Left IJ central line remains in place. Heart and mediastinal contours are unchanged. Moderate right pleural effusion is similar to the prior study. No pneumothorax. IMPRESSION No significant change in the moderate right pleural effusion. Dictated by... Samson Styles M.D. THIS IS AN ELECTRONICALLY VERIFIED REPORT Samson Styles M.D. at 02/07/2017 2:38 PM ABRAHAM/shelly TD: 02/07/2017 13:19 JOB #: [id number] MEDICAL IMAGING REPORT COPY
--- NOTE | ~2017-01-28 | CO ---
Unit #: [id number] #: [id number] Patient: YAYO YODER [id number] [address] [address] [id number] I MR#: [id number] NAME: YAYO YODER ROOM: [address] Age: 31 Sex: F Admission Date: 01/29/2017 : 1985 Attending Physician: Matthew Cid M.D. Primary Care Physician: No Primary Care Physician Consultation Date: 01/29/2017 CONSULTATION REPORT REASON FOR CONSULT ICU management. CHIEF COMPLAINT Back pain. HISTORY OF PRESENT ILLNESS This is a 31-year-old female with past medical history significant for polysubstance abuse who presented to the emergency room clinic first with back pain and fever for the last few days. The patient also admitted to have foul odor from her vagina for the last two months. There was concern of urine incontinence. The patient felt also lightheadedness but she denied any syncope. The patient had minimal cough but she felt more short of breath. The patient lives at home and she is an employee. PAST MEDICAL HISTORY 1. Sciatic nerve. 2. Previous pneumonia. PAST SURGICAL HISTORY Breast implants. SOCIAL HISTORY The patient smokes one pack per day. She is a heroin addict and she drinks alcohol. She lives with a friend. ALLERGIES Latex. HOME MEDICATION None. REVIEW OF SYSTEMS A 12-point review of systems was obtained and was negative except for what was mentioned in the HPI. PHYSICAL EXAMINATION GENERAL APPEARANCE: The patient is in acute distress, in tears. VITAL SIGNS: Blood pressure 105/62. Respiratory rate 24. O2 saturation 94% on two liters nasal cannula. HEENT: Atraumatic, normocephalic. PERRLA. EOMI. Unit #: [id number] #: [id number] Patient: YAYO YODER NECK: Supple. No JVD. No lymphadenopathy. CHEST: Bilateral fine rhonchi. HEART: S1, S2. Positive systolic murmur. ABDOMEN: Soft, nontender. Bowel sounds positive. No hepatosplenomegaly. EXTREMITIES: No edema or cyanosis. SKIN: Multiple IV drug corado. CENTRAL NERVOUS SYSTEM: The patient is awake, alert, oriented x3. No focal motor/sensory deficits. DIAGNOSTIC STUDIES LABORATORY: Creatinine 0.4, CO2 24. WBC count 7.5, hemoglobin 9.9. IMAGING: CT chest is consistent with septic emboli. ASSESSMENT 1. Acute hypoxic respiratory failure. 2. Septic shock. 3. Septic arthritis. 4. Septic emboli. 5. Endocarditis. 6. Polysubstance abuse. 7. Chronic anemia. PLAN 1. The patient is critical with expectation that she will decompensate. 2. Broad-spectrum antibiotics pending final culture. A 2D echo is consistent with vegetation 2 x 1 cm. 3. Orthopaedics to evaluate the patient and IR hopefully to drain the abscess. 4. The patient will likely need Infectious Disease consult for antibiotic choice and length of treatment. 5. Likely, this patient also will end up needing some cardiothoracic evaluation for vegetation site, needing possible valve repair. 6. We will hold on Lovenox at this point due to thrombocytopenia. 7. We will continue the patient on pressors and add midodrine with IV hydration. 8. We will follow lactic acid and urine output very closely. Critical care time spent on this patient was 36 minutes. Dictated by... Ana Gamez TD: 01/30/2017 07:50 JOB #: [id number] CONSULTATION REPORT X GILBERTO DAWSON MD X CONSULTATION REPORT
--- NOTE | ~2017-01-28 | XA47 ---
[facility] A Service [facility] RADIOLOGY TEXT RESULTS PATIENT: YAYO YODER LOCATION: [address] : [birth year] UNIT #: [id number] AGE: [address]: Heather Byrne MD SEX: F ORDER DR: [id number] [place] [address] [place], [place] [address] [id number] I MR#: [id number] Acc #: [id number] NAME: YAYO YODER : 1985 SEX: F STUDY DATE/TIME: 01/30/2017 9:43 UNIT: [facility] ROOM: [facility] STUDY DESCRIPTION: XA Aspiration Cyst/Abscess/Hem Attending Physician: Matthew Cid M.D. Ordering Physician: Jackson Bird M.D. Primary Care Physician: Primary Care Physician No MEDICAL IMAGING REPORT This report is preliminary unless electronic signature is present EXAM CT-guided retroperitoneal abscess aspiration 01/30/2017 HISTORY Pyogenic left sacroiliitis with abscess formation. Percutaneous aspiration is requested. TECHNIQUE This CT examination was performed with one or more of the following radiation dose reduction techniques: automatic exposure control, adjustment of mA and/or kV according to patient size, and iterative reconstruction. PROCEDURE Informed consent was obtained. A skin site was selected with CT guidance and marked, sterilely prepped, draped and locally anesthetized. Fentanyl and Versed were administered for IV conscious sedation with hemodynamic monitoring provided by the nursing staff throughout the procedure. Using CT guidance, an 18-gauge Yueh needle catheter was advanced into the fluid collection. Only a tiny amount of fluid could be aspirated. This was diluted in non bacteriostatic sterile saline and sent for microbiologic evaluation. IMPRESSION 1. Technically successful needle guided aspiration of a left iliacus /retroperitoneal abscess which appears to be associated with pyogenic sacroiliitis. Only a tiny amount of fluid could be aspirated. This was slightly diluted in non bacteriostatic sterile saline and sent for microbiologic evaluation. There were no complications. 2. Conscious sedation, total sedation time 30 minutes. [facility] A Service [facility] RADIOLOGY TEXT RESULTS PATIENT: YAYO YODER LOCATION: [address] : [birth year] UNIT #: [id number] AGE: [address]: Heather yBrne MD SEX: F ORDER DR: Dictated by... Yeyo Owen M.D. THIS IS AN ELECTRONICALLY VERIFIED REPORT Yeyo Owen M.D. at 02/04/2017 5:12 PM KRISTY/shelly TD: 01/30/2017 14:03 JOB #: [id number] MEDICAL IMAGING REPORT COPY
--- NOTE | ~2017-01-28 | CT134 ---
[facility] A Service of [facility] & [facility] / [facility] RADIOLOGY TEXT RESULTS PATIENT: YAYO YODER LOCATION: [place] [id number] : [birth year] UNIT #: [id number] AGE: [address]: Heather Byrne MD SEX: F ORDER DR: [id number] [place] [address] [place], [place] [address] [id number] I MR#: [id number] Acc #: [id number] NAME: YAYO YODER : 1985 SEX: F STUDY DATE/TIME: 01/30/2017 9:43 UNIT: [facility] ROOM: [facility] STUDY DESCRIPTION: CT Guide Attending Physician: Matthew Cid M.D. Ordering Physician: Jackson Bird M.D. Primary Care Physician: Primary Care Physician No MEDICAL IMAGING REPORT This report is preliminary unless electronic signature is present EXAM CT guide FINDINGS Please see XA aspiration cyst/abscess for results. Dictated by... Yeyo Owen M.D. THIS IS AN ELECTRONICALLY VERIFIED REPORT Yeyo Owen M.D. at 02/04/2017 5:11 PM KRISTY/shelly TD: 01/30/2017 14:12 JOB #: [id number] MEDICAL IMAGING REPORT COPY
--- NOTE | ~2017-01-28 | CO ---
Unit #: [id number] #: [id number] Patient: YAYO YODER [id number] [address] [place], [place] [address] [id number] I MR#: [id number] NAME: YAYO YODER ROOM: [facility]IC2 Age: 31 Sex: F Admission Date: 01/29/2017 : 1985 Attending Physician: Heather Byrne M.D. Primary Care Physician: No Primary Care Physician CONSULTATION REPORT REASON FOR CONSULTATION Tricuspid valve vegetation. HISTORY OF PRESENT ILLNESS This is a 31-year-old white female who presented to the emergency room on 01/29/2017 with a complaint of back pain and fever. She was seen in the emergency room in December of 2016 where chest x-ray found her to have right mid to lower lobe pneumonia. She complained of back pain at that time. According to her mother, they advised her to be admitted to the hospital but the patient refused. She was discharged home on steroids and antibiotics. Prior to coming to the hospital at that time she had difficulty with walking to a point where she was barely able to walk at all. Her mother states after the steroids she was able to walk better but still had some difficulty. She is currently intubated and is unable to provide a history. She had MRI of her lumbar spine that was normal. MRI of the sacrum revealed septic left SI joint with abscess. She has undergone a CT-guided aspiration of the abscess. She also has right lower lobe pneumonia as per chest x-ray. CT of the chest revealed suspicion for septic emboli. Presenting blood culture is positive for MRSA. Repeat blood culture shows Gram-positive cocci in clusters but final report is pending. Her white count initially low at 3.2 but has increased to 20.2. She was severely anemic on admission where her hemoglobin was 6.5 but improved after two units of packed red blood cells. Platelets were also low at 45 have since improved. The patient has a history of IV drug use and apparently lives with a boyfriend. According to the nursing staff, there are social issues with him. She has been hypotensive, requiring vasopressin and Levophed drips. Vasopressin has since been discontinued and she continues on IV fluids and Levophed. She was also started on Midrin. Echocardiogram shows multiple large highly mobile vegetations. She had been febrile until today. PAST MEDICAL HISTORY 1. Two-D echocardiogram 01/29/2017 shows an ejection fraction of 50% to 55% with mild to moderate dilated right atrium. Right ventricle mildly dilated. Mild mitral regurgitation. Jylpxqmm-km-tcieis tricuspid regurgitation with right ventricular systolic pressure of 50 mmHg. There are multiple 2 x 1 cm highly mobile echodense structures noted on the tricuspid valve that is highly suggestive of vegetation. 2. Polysubstance abuse with IV heroin. 3. ETOH abuse. 4. Active smoker. Unit #: [id number] #: [id number] Patient: YAYO YODER PAST SURGICAL HISTORY Breast implants. SOCIAL HISTORY The patient smokes a pack of cigarettes daily, known for IV heroin use, has a record of alcohol use. She lives with a boyfriend. FAMILY HISTORY Negative for heart disease. ALLERGIES Latex. HOME MEDICATIONS No current home medications. REVIEW OF SYSTEMS Unable to obtain because the patient is currently intubated. PHYSICAL EXAMINATION VITAL SIGNS: Blood pressure 91/55, heart rate 63, temperature 97.4, BMI 21. GENERAL: This is a 31-year-old young white female who is currently intubated and sedated. NECK: Trachea is midline. No thyromegaly or lymphadenopathy. No jugular venous distention. HEART: S1, S2 heart sounds are normal. No murmurs or rubs or clicks. Regular rate and rhythm. LUNGS: With scattered rhonchi both lungs, right greater than the left. ABDOMEN: Slightly firm, nondistended, with bowel sounds diminished. EXTREMITIES: With trace lower extremity edema. DIAGNOSTIC STUDIES LABORATORY: Glucose 170, BUN less than 5, creatinine 0.5, sodium 138, potassium 4.1, magnesium 1.6, lactic acid 0.6, white count 20.2, hemoglobin 12.0, hematocrit 36.9, platelet count is 248. IMAGING: Chest x-ray shows right lower lobe infiltrate and right effusion. CT of the chest reveals dense airspace disease in bilateral lower lobes concerning for pneumonia. Patchy nodular densities are scattered throughout both lungs. These are cavitary-type nodular densities, raising suspicious for septic emboli. Upper abdominal ascites. Questionable cholecystitis. Mild splenomegaly. CARDIOVASCULAR: EKG sinus tachycardia, rate of 112 beats per minute with nonspecific ST-wave abnormality. IMPRESSION 1. Acute respiratory failure. 2. Septic pulmonary emboli. 3. Methicillin-resistant Staphylococcus aureus bacteremia. 4. Large tricuspid valve vegetation. 5. Right lower lobe pneumonia. 6. Severe anemia, corrected. 7. Hypomagnesemia. 8. IV drug use. 9. Nicotine abuse. Unit #: [id number] #: [id number] Patient: YAYO YODER PLAN 1. Cardiology was consulted because of tricuspid vegetation. Four/six sets of blood cultures are positive for Gram-positive cocci. 2. Continue IV antibiotics. 3. No surgery required at this time but will continue to follow. 4. P.r.n. diuretics. Thank you for allowing us to assist in this patient's care. Dictated by... Jared Carvajal A.P.R.N. for Ana Metz/jyoti TD: 02/03/2017 19:48 JOB #: [id number] CONSULTATION REPORT X Jared Carvajal APRN X CONSULTATION REPORT
--- NOTE | ~2017-01-28 | DS ---
Unit #: [id number] #: [id number] Patient: YAYO YODER [id number] [place] [id number] [facility]. [place], [place] [address] [id number] MR#: [id number] NAME: YAYO YODER ROOM: 553 Age: 31 Sex: F Admission Date: 01/29/2017 : 1985 Discharge Date: 02/07/2017 Attending Physician: Heather Byrne M.D. Primary Care Physician: Primary Care Physician No DISCHARGE SUMMARY DATE OF TRANSFER 02/07/2017. PLACE OF TRANSFER [facility]. REASON FOR ADMISSION Back pain. HISTORY OF PRESENT ILLNESS/HOSPITAL COURSE Please see H and P for complete details of initial part of hospital stay. The patient is a 31-year-old female with an underlying history of ongoing IV drug abuse, who presented secondary to back discomfort and/or pain. Initially, while she was evaluated in the emergency room, she underwent CT chest, abdomen, and pelvis, as well as a CTA chest for PE protocol. She also underwent an MRI of her lumbar spine. Initial laboratory studies also yielded a hemoglobin of 6.5. Upon review of the imaging studies, it was noted the patient did have an SI joint abscess, which was noted. Interventional Radiology did perform an aspiration of the aforementioned abscess. Secondary to associated conditions as well as sepsis, which was present on admission. The patient's respiratory status was compromised and subsequently she was intubated and she was placed in the ICU. Consultation was placed to Dr. Higginbotham. In regard to her respiratory failure likely secondary to septic emboli, she was gradually weaned from the ventilator, placed on O2 nasal cannula, and currently is on telemetry floor. In regard to the patient's history of ongoing IV drug abuse, several sets of blood cultures, the initial 2 sets were positive for MRSA. Consultation was then placed to ID Services Dr. Ruiz and yaneth saw and evaluated the patient and they have been following the patient since symptoms through hospital course. Secondary to persistent bacteremia, the patient underwent 2D echocardiogram as well as AUBREY, which did raise the possibility of a large vegetation which was noted on the tricuspid valve consistent with infective endocarditis. Unit #: [id number] #: [id number] Patient: YAYO YODER The patient's ejection fraction was also noted to be decreased at 30 to 35% consistent with systolic heart failure. The patient's repeat and last set of blood cultures which was performed and drawn on 02/04/2017 has no growth to date. The patient through hospital course has also undergone a bronchoscopy, which was consistent with MRSA as well. Today, at the time of transfer, the patient's hemoglobin is now 9.9. Electrolytes are stable. Albumin is noted to be decreased at 1.8. The patient's condition has been discussed with Dr. Rondon of Cardiology Services, Infectious Disease Services as well as Pulmonary Services, all consultants are in agreement the patient requires a CV surgery evaluation, and therefore, the patient will be transferred to [facility] for ongoing care. Plans have been reviewed with accepting physician, Dr. Sanchez. CURRENT CLINICAL DIAGNOSES 1. Infective endocarditis of the tricuspid valve. 2. Methicillin-resistant Staphylococcus aureus bacteremia with current blood cultures dated on 02/04/2017 returning negative. 3. Ongoing IV drug abuse. 4. Bilateral pneumonia methicillin-resistant Staphylococcus aureus. 5. Sacroiliac joint abscess, status post aspiration consistent with methicillin-resistant Staphylococcus aureus. 6. Septic emboli. 7. Acute respiratory failure/septic shock on admission. 8. Systolic heart failure with an ejection fraction 30% to 35%. DISCHARGE MEDICATIONS Will remain the same as current including Vistaril 25 mg p.o. q.8, Neurontin 300 mg p.o. q.8, trazodone 50 mg p.o. q.h.s., Lasix 20 mg p.o. daily, potassium chloride 40 mEq p.o. daily, Protonix 40 mg p.o. daily, Accu-Cheks q.a.c. and q.h.s. with low-dose NovoLog sliding scale, midodrine 10 mg p.o. q.8, Lovenox 40 mg subcu daily, daptomycin q.24 hours, and Zyvox 600 mg IV q.12. DISCHARGE DISPOSITION [facility]. DISCHARGE CONDITION Stable. PROGNOSIS Guarded and the patient is aware. Dictated by... Heather Byrne M.D. JN/iron TD: 02/08/2017 00:05 JOB #: [id number] Unit #: [id number] #: [id number] Patient: YAYO YODER DISCHARGE SUMMARY X Heather Byrne MD X DISCHARGE SUMMARY
--- NOTE | ~2017-01-28 | CR7 ---
[facility] A Service of [facility] / [facility] RADIOLOGY TEXT RESULTS PATIENT: YAYO YODER LOCATION: [address] : [birth year] UNIT #: [id number] AGE: [address]: Matthew Cid MD SEX: F ORDER DR: [id number] [place] [address] [facility]. [place], [place] [address] [id number] I MR#: [id number] Acc #: [id number] NAME: YAYO YODER : 1985 SEX: F STUDY DATE/TIME: 01/31/2017 11:58 UNIT: [facility] ROOM: [facility] STUDY DESCRIPTION: CR Abdomen Single AP View Attending Physician: Matthew Cid M.D. Ordering Physician: Samira Chiu M.D. Primary Care Physician: Primary Care Physician No MEDICAL IMAGING REPORT This report is preliminary unless electronic signature is present EXAM Portable abdomen. HISTORY Dobbhoff tube placement. FINDINGS This supine view of the abdomen shows the Dobbhoff tube tip is in the antrum of the stomach. The visible bowel gas pattern is normal. Dictated by... Norberto Wang M.D. THIS IS AN ELECTRONICALLY VERIFIED REPORT Norberto Wang M.D. at 01/31/2017 2:59 PM FARHAT/urvashi TD: 01/31/2017 14:22 JOB #: [id number] MEDICAL IMAGING REPORT COPY
--- NOTE | ~2017-01-28 | EKG ---
PATIENT: YAYO YODER UNIT #: [id number] Ventricular Rate: 112 BPM Atrial Rate: 112 BPM P-R Interval: 124 ms QRS Duration: 78 ms Q-T Interval: 294 ms QTC Calculation(Bezet): 401 ms P [place]: 73 degrees Calculated R [place]: 61 degrees Calculated T [place]: 17 degrees Diagnosis Line: Sinus tachycardia Diagnosis Line: Nonspecific T wave abnormality Diagnosis Line: Abnormal ECG Diagnosis Line: No previous ECGs available Diagnosis Line: Confirmed by ROSE SLAAZAR MD ([id number]) on Diagnosis Line: 01/29/2017 4:14:46 PM INTERPRETING MD: MARTIN MALLORY
--- NOTE | ~2017-01-28 | CO ---
Unit #: [id number] #: [id number] Patient: YAYO BERMUDEZ [id number] [facility] [address] [place], [place] [address] [id number] I MR#: [id number] NAME: YAYO BERMUDEZ ROOM: 553 Age: 31 Sex: F Admission Date: 01/29/2017 : 1985 Attending Physician: Heather Byrne M.D. Consultation Date: 02/06/2017 CONSULTATION REPORT REASON FOR CONSULTATION Opioid overdose, depression, anxiety. HISTORY OF PRESENT ILLNESS Ms. Sugar Bermudez is a 31-year-old white female, seen in bed 11, CCU 2, at [facility]. The patient was initially admitted on 01/30/2017. The patient was diagnosed with septic shock. The patient was subsequently transferred to ICU, diagnosed with infective endocarditis. The patient was admitted using IV drugs, drug of choice heroin, also used methamphetamine. The patient reports that she is feeling better. The patient was able to give coherent history. The patient's mother was also at the bedside. The patient reported feeling sad, depressed, trying to mask her depression with drugs. The patient has also lost her sister from drugs and also father from suicide. The patient currently denied any suicidal or homicidal ideation, but feeling sad, depressed, and also reported having withdrawal symptoms such as anxiety restlessness of her legs, hot and cold sweats, trouble sleeping, mood lability, anxiety and depression. PAST PSYCHIATRIC HISTORY Remarkable for history of substance abuse as mentioned above. No history of any treatment inpatient or outpatient. MEDICAL HISTORY History of sciatica and history of pneumonia, also diagnosed with septic shock, septic arthritis, infective endocarditis, acute hypoxic respiratory failure, pneumonia. MEDICATION HISTORY The patient is currently on ProAmatine, furosemide, Klor-Con, Solu-Cortef, Protonix, Lovenox, Zyvox. FAMILY HISTORY AND SOCIAL HISTORY The patient has a good support system from mom. Denied being , no children. No history of any abuse. History of substance abuse as mentioned above. Drug of choice heroin and meth. REVIEW OF SYSTEMS Complete review of systems is unremarkable except as mentioned above. MENTAL STATUS EXAMINATION General appearance; the patient is dressed in hospital attire, lying comfortably in bed. The patient has a nasogastric tube. Attention span and concentration, fair. Speech, regular rate and coherent. Oriented in Unit #: [id number] #: [id number] Patient: YAYO BERMUDEZ time, place, and person. Mood and affect were sad, dysphoric, withdrawn, flat affect. Thought process, coherent. Thought content, the patient denied any thoughts of harming self or others or any psychotic symptom. Sad and depressed mood. Recent and remote memory, fair. Language, able to name object, repeat phrases. Fund of knowledge, fair. Insight and judgment, fair to poor. DIAGNOSES Psychiatric: 1. Opioid use disorder, severe, F11.20. 2. Major depressive disorder, recurrent, F33.2. Secondary diagnosis: Deferred. Medical diagnosis: Please refer to H and P. Stressors: Psychosocial stressors. ASSESSMENT/PLAN 1. Supportive psychotherapy and psychoeducation were provided to the patient and the patient's mother who was at the bedside. 2. Educated about benefits and side effects of medication and course and prognosis of illness. 3. Recommending at this time Desyrel 50 mg at bedtime for sleep, Neurontin 300 mg t.i.d. for anxiety and withdrawal symptoms such as anxiety and agitation, Vistaril 25 mg t.i.d. for anxiety. We will consider SSRI once the patient is off from Zyvox because of the drug interaction, unable to use. We will continue to follow. Please feel free to call if any questions, telephone #[phone]. Dictated by... Ana Amanda/iron TD: 02/07/2017 07:21 JOB #: [id number] CONSULTATION REPORT X David Miguel MD X CONSULTATION REPORT
--- NOTE | ~2017-01-28 | CR72 ---
[facility] A Service of [facility] & [facility] RADIOLOGY TEXT RESULTS PATIENT: YAYO YODER LOCATION: [address] : [birth year] UNIT #: [id number] AGE: [address]: Matthew Cid MD SEX: F ORDER DR: [id number] [facility] [address] [place], [place] [address] [id number] I MR#: [id number] #: [id number] NAME: YAYO YODER : 1985 SEX: F STUDY DATE/TIME: 01/30/2017 02:38 UNIT: [facility] ROOM: [facility] STUDY DESCRIPTION: CR Chest Single View Portable Attending Physician: Matthew Cid M.D. Ordering Physician: Crys Vasquez M.D. Primary Care Physician: Primary Care Physician No MEDICAL IMAGING REPORT This report is preliminary unless electronic signature is present EXAM Portable chest 01/30 02:38 INDICATIONS Sepsis. History of heroin abuse. Shortness of air. FINDINGS AP portable chest is compared to 01/04/17. Comparison is also made with chest CT from 01/29/2017. The heart size stable. Left IJ line tip in the right atrium. Bilateral poorly defined nodular infiltrates are again seen. These are better seen on the last night CT and presumably reflects septic emboli. No pneumothorax. Dictated by... Masood Craft Jr., M.D. THIS IS AN ELECTRONICALLY VERIFIED REPORT Masood Craft Jr., M.D. at 01/30/2017 9:16 PM DAI/urvashi TD: 01/30/2017 10:17 JOB #: [id number] MEDICAL IMAGING REPORT COPY
--- NOTE | ~2017-01-28 | CO ---
Unit #: [id number] #: [id number] Patient: YAYO YODER [id number] [address] [place], [place] [address] [id number] I MR#: [id number] NAME: YAYO YODER ROOM: [facility] Age: 31 Sex: F Admission Date: 01/29/2017 : 1985 Attending Physician: Heather Byrne M.D. Primary Care Physician: Primary Care Physician No Consultation Date: 01/29/2017 CONSULTATION REPORT REQUESTING PHYSICIAN Dr. Byrne. REASON FOR CONSULTATION Antibiotic management for septic shock with MRSA and right-sided endocarditis. HISTORY OF PRESENT ILLNESS The patient is a 31-year-old female, at this time is intubated and no family members at the bedside. All of the history is from the chart. Apparently, she was admitted with back pain of prior to sudden onset over 2 days of duration, found to have SI joint infection on MRI, which has been drained percutaneously by [facility]. She also was found to have MRSA bacteremia with vanc FABIÁN of 2. Initially was on vancomycin, now has been switched to daptomycin. She is also on Zosyn. Chest CT shows cavitary pneumonia and dense infiltrate. Infectious Disease consultation requested for further evaluation and antibiotic management. As noted above, the patient is intubated. No family members at the bedside. All of the history is from the chart. From the notes, it looks like there is a history of substance abuse, but there was no mention whether she does IV drug use or just snorting and smoking. PAST MEDICAL HISTORY 1. Sciatica. 2. Pneumonia. 3. Breast augmentation. SOCIAL HISTORY Remarkable for substance abuse possibly IV drug use. FAMILY HISTORY Noncontributory. ALLERGIES Latex. CURRENT MEDICATIONS List reviewed. Antibiotics include initially vancomycin and Zosyn, now with daptomycin and Zosyn. PHYSICAL EXAMINATION GENERAL: Intubated, sedated. VITAL SIGNS: Temperature 98, pulse 69, respirations 16, blood pressure 116/80. Unit #: [id number] #: [id number] Patient: YAYO YODER HEENT: Unremarkable. NECK: Supple. CHEST: Clear to auscultation. HEART: Normal S1 and S2. ABDOMEN: Soft, nontender. EXTREMITIES: Shows no edema. DIAGNOSTIC STUDIES IMAGING STUDIES: As noted above. CT of chest with cavitary lesions and dense infiltrate. MRI of the sacrum and lumbar spine showing septic arthritis of the left SI joint and abscess, also reactive changes in the adjacent sacrum, possible osteomyelitis. LABORATORY RESULTS: BUN 5, creatinine 0.4. WBC 16.6, hemoglobin 10.2, platelets 267. Tox screen positive for amphetamines and marijuana. Urinalysis had pyuria. Blood cultures / on 01/29/2017 and 12/27 on 01/31/2017. Repeat are pending. ASSESSMENT 1. Methicillin-resistant Staphylococcus aureus sepsis. 2. Right-sided tricuspid valve endocarditis. 3. Septic pulmonary emboli. 4. Left sacroiliac joint septic arthritis, status post drainage. 5. Respiratory failure. PLAN At this time, I would go ahead and continue with daptomycin and is in appropriate choice considering that the vanc FABIÁN is 2 and the patient failed to clear bacteremia while on vancomycin, but she needs coverage for MRSA, for the lungs, reducing daptomycin will not be effective. We will add Zyvox. Other option is ceftaroline, but we will try a combination of erythromycin and Zyvox and if that fails, then we will consider switching antibiotic. We will continue with Zosyn at this time. Follow up on repeat cultures. Cardiology has been asked us to see the patient for possible evaluation for cardiothoracic surgery. We will discuss with further recommendation depending upon the course. I would like to thank Dr. Byrne for requesting us to participate in the care of this patient. We will follow this patient along with you. Dictated by... Ana Motley/iron TD: 02/02/2017 18:38 JOB #: [id number] Unit #: [id number] #: [id number] Patient: YAYO YODER CONSULTATION REPORT X Carlos Ko MD CONSULTATION REPORT
[2017-01-28 20:38] LABS: URINE SOURCE CLEAN CATCH
[2017-01-28 20:44] LABS: URINE APPEARANCE CLEAR; URINE BILIRUBIN NEG (NEG); URINE BLOOD NEG (NEG); URINE COLOR DK YELLOW; URINE GLUCOSE NEG (NEG); URINE KETONE NEG (NEG); URINE LEUKOCYTE ESTERASE 1+ (NEG); URINE NITRATE NEG (NEG); URINE PH 6.5 (5-8); URINE PROTEIN 1+ (NEG); URINE SPECIFIC GRAVITY 1.012 (1.003-1.035)
[2017-01-28 20:46] LABS: CULTURE INDICATED? YES; URINE BACTERIA AUWI 1+ (NEGATIVE); URINE SQUAMOUS EPITHELIAL CELL MOD /[HPF]
[2017-01-29 00:05] LABS: AMPHETAMINE POS (NEG); BARBITURATES NEG (NEG); BENZODIAZEPINES NEG (NEG); COCAINE NEG (NEG); MARIJUANA POS (NEG); OPIATES NEG (NEG); TRICYCLIC ANTIDEPRESSANTS NEG (NEG); U METHADONE NEG (NEG)
[2017-01-29] MEDS ORDERED: NO MEDICATIONS (00:22)
[2017-01-29 02:00] LABS: INR 1.1; PARTIAL THROMBOPLASTIN TIME 29.6 SECONDS (23.5-31.3); PROTHROMBIN TIME (PATIENT) 11.4 SECONDS (9.6-11.5)
[2017-01-29 02:12] LABS: ALBUMIN SERUM 2.3 g/dL (3.5-5.0); ALKALINE PHOSPHATASE 111 U/L (32-92); ALT (SGPT) 28 U/L (10-40); AST (SGOT) 54 U/L (10-42); BILIRUBIN, DIRECT 0.4 mg/dL (0.0-0.2); BILIRUBIN,INDIRECT 0.7 mg/dL (0.0-0.9); BILIRUBIN,TOTAL 1.1 mg/dL (0.2-2.0); BLOOD UREA NITROGEN 8 mg/dL (9-23); BUN/CREATININE RATIO 13.33; CALCIUM SERUM 7.9 mg/dL (8.4-10.2); CARBON DIOXIDE 27 mmol/L (22-31); CHLORIDE 90 mmol/L (100-111); CREATININE SERUM 0.6 mg/dL (0.6-1.4); GLOM FILT RATE Estimated ABOVE60 mL/min (>60); GLUCOSE FASTING 106 mg/dL (70-110); PROTEIN TOTAL SERUM 6.2 g/dL (6.0-8.3); SODIUM 127 mmol/L (135-145)
[2017-01-29 02:13] LABS: POTASSIUM 2.6 mmol/L (3.5-5.1)
[2017-01-29 02:15] LABS: BASOPHIL% 0.8 % (0-2.5); EOSINOPHIL% 0.9 % (0.0-7.0); HEMATOCRIT 24.6 % (35.0-45.0); HEMOGLOBIN 8.1 gm/dL (12.0-16.0); LYMPHOCYTE# 0.6 X10e3 (1.0-3.5); LYMPHOCYTE% 11.2 % (17.0-45.0); MEAN CELL VOLUME 79.9 FL (83-96); MEAN CORPUSCULAR HEMOGLOBIN 26.4 PG (28-34); MEAN CORPUSCULAR HGB CONC 33.1 g/dL (30-36); MEAN PLATELET VOLUME 10.3 FL (6.5-11.5); MONOCYTE# 0.3 X10e3 (0-1.0); MONOCYTE% 5.1 % (3.0-12.0); NEUTROPHIL# 4.2 X10e3 (1.5-7.1); RED BLOOD COUNT 3.07 X10e (3.90-5.30); RED CELL DISTRIBUTION WIDTH 16.7 % (11.0-15.5); WHITE BLOOD COUNT 5.2 X10e3 (4.0-10.5)
[2017-01-29 02:16] LABS: DIFF IND YES; PLATELET COUNT 62 X10e3 (140-420)
[2017-01-29 02:19] LABS: PLATELET ESTIMATE DECREASED (NORMAL)
[2017-01-29 11:16] LABS: ARTERIAL BLD GAS O2 SATURATION 83.9 % (90.0-100.0); ARTERIAL BLOOD GAS CARBOXY HB 1.4 %sat (0.0-9.0); ARTERIAL BLOOD GAS HCO3 23.2 mmol/L; ARTERIAL BLOOD GAS MET HB 1.1 %sat (0.0-2.0); ARTERIAL BLOOD GAS PCO2 39.4 mmHg (35.0-45.0); ARTERIAL BLOOD GAS pH 7.378 (7.350-7.450)
[2017-01-29 11:18] LABS: ARTERIAL BLOOD GAS ALLEN TEST NORMAL; ARTERIAL BLOOD GAS ART SITE RIGHT RADIAL; ARTERIAL BLOOD GAS PO2 52.5 mmHg (80.0-100); ARTERIAL DRAW? YES
[2017-01-29 11:26] LABS: HEMATOCRIT 19.9 % (35.0-45.0); MEAN CELL VOLUME 80.5 FL (83-96); MEAN CORPUSCULAR HEMOGLOBIN 26.5 PG (28-34); MEAN CORPUSCULAR HGB CONC 32.9 g/dL (30-36); MEAN PLATELET VOLUME 9.9 FL (6.5-11.5); RED BLOOD COUNT 2.47 X10e (3.90-5.30); RED CELL DISTRIBUTION WIDTH 17.4 % (11.0-15.5); WHITE BLOOD COUNT 3.2 X10e3 (4.0-10.5)
[2017-01-29 11:29] LABS: HEMOGLOBIN 6.5 gm/dL (12.0-16.0)
[2017-01-29 11:50] LABS: ALBUMIN SERUM 1.6 g/dL (3.5-5.0); ALKALINE PHOSPHATASE 83 U/L (32-92); ALT (SGPT) 20 U/L (10-40); AST (SGOT) 35 U/L (10-42); BLOOD UREA NITROGEN <5 mg/dL (9-23); CALCIUM SERUM 6.6 mg/dL (8.4-10.2); CARBON DIOXIDE 24 mmol/L (22-31); CHLORIDE 103 mmol/L (100-111); CREATININE SERUM 0.4 mg/dL (0.6-1.4); GLOM FILT RATE Estimated ABOVE60 mL/min (>60); GLUCOSE FASTING 91 mg/dL (70-110); MAGNESIUM 1.5 mg/dL (1.6-3.0); PHOSPHOROUS 2.1 mg/dL (2.5-4.6); PROTEIN TOTAL SERUM 4.5 g/dL (6.0-8.3); SODIUM 134 mmol/L (135-145)
[2017-01-29 11:55] LABS: POTASSIUM 2.9 mmol/L (3.5-5.1)
[2017-01-29 12:21] LABS: ARTERIAL BLD GAS O2 SATURATION 58.7 % (90.0-100.0); ARTERIAL BLOOD GAS CARBOXY HB 1.5 %sat (0.0-9.0); ARTERIAL BLOOD GAS MET HB 1.2 %sat (0.0-2.0); ARTERIAL BLOOD GAS PCO2 41.6 mmHg (35.0-45.0)
[2017-01-29 12:24] LABS: ARTERIAL BLOOD GAS PO2 33.3 mmHg (80.0-100); ARTERIAL DRAW? NO
[2017-01-29 18:23] LABS: ARTERIAL BLD GAS O2 SATURATION 40.8 % (90.0-100.0); ARTERIAL BLOOD GAS CARBOXY HB 1.1 %sat (0.0-9.0); ARTERIAL BLOOD GAS PCO2 43.7 mmHg (35.0-45.0); ARTERIAL BLOOD GAS PO2 25.3 mmHg (80.0-100); ARTERIAL BLOOD GAS pH 7.348 (7.350-7.450); ARTERIAL DRAW? NO
[2017-01-30 06:31] LABS: HEMATOCRIT 30.4 % (35.0-45.0); MEAN CELL VOLUME 81.7 FL (83-96); MEAN CORPUSCULAR HEMOGLOBIN 26.7 PG (28-34); MEAN CORPUSCULAR HGB CONC 32.7 g/dL (30-36); MEAN PLATELET VOLUME 10.1 FL (6.5-11.5); RED BLOOD COUNT 3.72 X10e (3.90-5.30); RED CELL DISTRIBUTION WIDTH 16.7 % (11.0-15.5)
[2017-01-30 06:38] LABS: INR 1.1; PARTIAL THROMBOPLASTIN TIME 28.7 SECONDS (23.5-31.3); PROTHROMBIN TIME (PATIENT) 11.9 SECONDS (9.6-11.5)
[2017-01-30 07:01] LABS: HEMOGLOBIN 9.9 gm/dL (12.0-16.0); WHITE BLOOD COUNT 7.5 X10e3 (4.0-10.5)
[2017-01-30 09:32] LABS: ALBUMIN SERUM 1.5 g/dL (3.5-5.0); ALKALINE PHOSPHATASE 96 U/L (32-92); ALT (SGPT) 19 U/L (10-40); AST (SGOT) 22 U/L (10-42); BILIRUBIN,TOTAL 0.9 mg/dL (0.2-2.0); BLOOD UREA NITROGEN <5 mg/dL (9-23); CALCIUM SERUM 7.2 mg/dL (8.4-10.2); CARBON DIOXIDE 22 mmol/L (22-31); CHLORIDE 106 mmol/L (100-111); CREATININE SERUM 0.4 mg/dL (0.6-1.4); GLOM FILT RATE Estimated ABOVE60 mL/min (>60); GLUCOSE FASTING 140 mg/dL (70-110); POTASSIUM 3.8 mmol/L (3.5-5.1); PROTEIN TOTAL SERUM 4.6 g/dL (6.0-8.3); SODIUM 135 mmol/L (135-145)
[2017-01-31 04:59] LABS: BASOPHIL# 0.1 X10e3 (0-0.3); BASOPHIL% 0.6 % (0-2.5); DIFF IND NO; EOSINOPHIL# 0.1 X10e3 (0-0.7); EOSINOPHIL% 0.8 % (0.0-7.0); HEMATOCRIT 29.9 % (35.0-45.0); HEMOGLOBIN 9.9 gm/dL (12.0-16.0); LYMPHOCYTE# 1.5 X10e3 (1.0-3.5); LYMPHOCYTE% 14.7 % (17.0-45.0); MEAN CELL VOLUME 81.7 FL (83-96); MEAN CORPUSCULAR HEMOGLOBIN 27.1 PG (28-34); MEAN CORPUSCULAR HGB CONC 33.1 g/dL (30-36); NEUTROPHIL# 7.4 X10e3 (1.5-7.1); NEUTROPHIL% 73.9 % (40-75); PLATELET COUNT 111 X10e3 (140-420); RED BLOOD COUNT 3.66 X10e (3.90-5.30); RED CELL DISTRIBUTION WIDTH 16.8 % (11.0-15.5); WHITE BLOOD COUNT 9.9 X10e3 (4.0-10.5)
[2017-01-31 06:11] LABS: CALCIUM SERUM 7.3 mg/dL (8.4-10.2); CARBON DIOXIDE 23 mmol/L (22-31); CHLORIDE 100 mmol/L (100-111); CREATININE SERUM 0.5 mg/dL (0.6-1.4); GLOM FILT RATE Estimated ABOVE60 mL/min (>60); GLUCOSE FASTING 125 mg/dL (70-110); MAGNESIUM 1.6 mg/dL (1.6-3.0); POTASSIUM 3.1 mmol/L (3.5-5.1); SODIUM 131 mmol/L (135-145)
[2017-01-31 06:12] LABS: BLOOD UREA NITROGEN <5 mg/dL (9-23)
[2017-01-31 09:41] LABS: ARTERIAL BLD GAS O2 SATURATION 94.2 % (90.0-100.0); ARTERIAL BLOOD GAS CARBOXY HB 0.9 %sat (0.0-9.0); ARTERIAL BLOOD GAS HCO3 24.7 mmol/L; ARTERIAL BLOOD GAS MET HB 0.6 %sat (0.0-2.0); ARTERIAL BLOOD GAS PCO2 29.1 mmHg (35.0-45.0); ARTERIAL BLOOD GAS pH 7.537 (7.350-7.450)
[2017-01-31 09:42] LABS: ARTERIAL BLOOD GAS ALLEN TEST NORMAL; ARTERIAL BLOOD GAS ART SITE LEFT RADIAL; ARTERIAL BLOOD GAS DELIVERY NASAL CANNULA; ARTERIAL BLOOD GAS LITER FLOW 1.5; ARTERIAL BLOOD GAS PO2 66.8 mmHg (80.0-100); ARTERIAL DRAW? YES
[2017-01-31 10:10] LABS: CHLAMYDIA TRACH Not Detected (Not Detected); N GONOR Not Detected (Not Detected)
[2017-01-31 12:32] LABS: ARTERIAL BLD GAS O2 SATURATION 96.2 % (90.0-100.0); ARTERIAL BLOOD GAS CARBOXY HB 0.8 %sat (0.0-9.0); ARTERIAL BLOOD GAS HCO3 23.1 mmol/L; ARTERIAL BLOOD GAS MET HB 0.5 %sat (0.0-2.0); ARTERIAL BLOOD GAS PCO2 32.6 mmHg (35.0-45.0); ARTERIAL BLOOD GAS PO2 89.1 mmHg (80.0-100); ARTERIAL BLOOD GAS pH 7.458 (7.350-7.450)
[2017-01-31 12:33] LABS: ARTERIAL BLOOD GAS ALLEN TEST NORMAL; ARTERIAL BLOOD GAS ART SITE LEFT RADIAL; ARTERIAL BLOOD GAS DELIVERY VENT; ARTERIAL BLOOD GAS VENT MODE AC; ARTERIAL DRAW? YES
[2017-02-01 04:00] LABS: ARTERIAL BLD GAS O2 SATURATION 98.2 % (90.0-100.0); ARTERIAL BLOOD GAS CARBOXY HB 0.6 %sat (0.0-9.0); ARTERIAL BLOOD GAS HCO3 23.4 mmol/L; ARTERIAL BLOOD GAS MET HB 0.8 %sat (0.0-2.0); ARTERIAL BLOOD GAS PCO2 32.2 mmHg (35.0-45.0); ARTERIAL BLOOD GAS pH 7.468 (7.350-7.450)
[2017-02-01 04:11] LABS: ARTERIAL BLOOD GAS ALLEN TEST NORMAL; ARTERIAL DRAW? YES
[2017-02-01 04:12] LABS: ARTERIAL BLOOD GAS ART SITE RIGHT RADIAL; ARTERIAL BLOOD GAS DELIVERY VENT; ARTERIAL BLOOD GAS VENT MODE AC
[2017-02-01 05:49] LABS: BASOPHIL# 0.1 X10e3 (0-0.3); BASOPHIL% 0.3 % (0-2.5); HEMATOCRIT 36.9 % (35.0-45.0); LYMPHOCYTE# 1.8 X10e3 (1.0-3.5); MEAN CELL VOLUME 81.7 FL (83-96); MEAN CORPUSCULAR HEMOGLOBIN 26.5 PG (28-34); MEAN CORPUSCULAR HGB CONC 32.4 g/dL (30-36); MEAN PLATELET VOLUME 9.1 FL (6.5-11.5); MONOCYTE# 0.9 X10e3 (0-1.0); MONOCYTE% 4.6 % (3.0-12.0); NEUTROPHIL# 17.4 X10e3 (1.5-7.1); NEUTROPHIL% 86.1 % (40-75); RED BLOOD COUNT 4.52 X10e (3.90-5.30); RED CELL DISTRIBUTION WIDTH 17.7 % (11.0-15.5)
[2017-02-01 05:57] LABS: WHITE BLOOD COUNT 20.2 X10e3 (4.0-10.5)
[2017-02-01 06:00] LABS: DIFF IND YES; PLATELET COUNT 248 X10e3 (140-420)
[2017-02-01 06:29] LABS: ALBUMIN SERUM 1.5 g/dL (3.5-5.0); ALKALINE PHOSPHATASE 99 U/L (32-92); ALT (SGPT) 13 U/L (10-40); AST (SGOT) 13 U/L (10-42); BILIRUBIN,TOTAL 0.5 mg/dL (0.2-2.0); CALCIUM SERUM 7.8 mg/dL (8.4-10.2); CARBON DIOXIDE 24 mmol/L (22-31); CHLORIDE 107 mmol/L (100-111); CREATININE SERUM 0.5 mg/dL (0.6-1.4); GLOM FILT RATE Estimated ABOVE60 mL/min (>60); GLUCOSE FASTING 170 mg/dL (70-110); POTASSIUM 4.1 mmol/L (3.5-5.1); PROTEIN TOTAL SERUM 5.1 g/dL (6.0-8.3); SODIUM 138 mmol/L (135-145)
[2017-02-01 06:44] LABS: ANISOCYTOSIS SL; PLATELET ESTIMATE NORMAL (NORMAL); RBC NORMAL YES
[2017-02-01 06:45] LABS: BLOOD UREA NITROGEN <5 mg/dL (9-23)
[2017-02-02 04:17] LABS: ARTERIAL BLD GAS O2 SATURATION 97.7 % (90.0-100.0); ARTERIAL BLOOD GAS CARBOXY HB 0.2 %sat (0.0-9.0); ARTERIAL BLOOD GAS HCO3 22.9 mmol/L; ARTERIAL BLOOD GAS MET HB 0.7 %sat (0.0-2.0); ARTERIAL BLOOD GAS PCO2 34.4 mmHg (35.0-45.0); ARTERIAL BLOOD GAS pH 7.431 (7.350-7.450)
[2017-02-02 04:21] LABS: ARTERIAL BLOOD GAS ALLEN TEST NORMAL; ARTERIAL BLOOD GAS ART SITE LEFT RADIAL; ARTERIAL BLOOD GAS DELIVERY VENT; ARTERIAL BLOOD GAS VENT MODE AC; ARTERIAL DRAW? YES
[2017-02-02 04:32] LABS: BASOPHIL# 0.1 X10e3 (0-0.3); BASOPHIL% 0.6 % (0-2.5); HEMATOCRIT 32.4 % (35.0-45.0); HEMOGLOBIN 10.2 gm/dL (12.0-16.0); LYMPHOCYTE# 1.9 X10e3 (1.0-3.5); LYMPHOCYTE% 11.8 % (17.0-45.0); MEAN CELL VOLUME 83.6 FL (83-96); MEAN CORPUSCULAR HEMOGLOBIN 26.2 PG (28-34); MEAN CORPUSCULAR HGB CONC 31.4 g/dL (30-36); MEAN PLATELET VOLUME 8.4 FL (6.5-11.5); MONOCYTE% 5.7 % (3.0-12.0); NEUTROPHIL# 13.6 X10e3 (1.5-7.1); NEUTROPHIL% 81.9 % (40-75); PLATELET COUNT 267 X10e3 (140-420); RED BLOOD COUNT 3.88 X10e (3.90-5.30); RED CELL DISTRIBUTION WIDTH 17.7 % (11.0-15.5); WHITE BLOOD COUNT 16.6 X10e3 (4.0-10.5)
[2017-02-02 04:34] LABS: DIFF IND NO
[2017-02-02 04:47] LABS: ALBUMIN SERUM 1.6 g/dL (3.5-5.0); ALKALINE PHOSPHATASE 78 U/L (32-92); ALT (SGPT) 10 U/L (10-40); AST (SGOT) 15 U/L (10-42); BILIRUBIN,TOTAL 0.3 mg/dL (0.2-2.0); BLOOD UREA NITROGEN 5 mg/dL (9-23); CALCIUM SERUM 7.5 mg/dL (8.4-10.2); CARBON DIOXIDE 23 mmol/L (22-31); CHLORIDE 109 mmol/L (100-111); CREATININE SERUM 0.4 mg/dL (0.6-1.4); GLOM FILT RATE Estimated ABOVE60 mL/min (>60); GLUCOSE FASTING 165 mg/dL (70-110); POTASSIUM 4.2 mmol/L (3.5-5.1); PROTEIN TOTAL SERUM 5.2 g/dL (6.0-8.3); SODIUM 141 mmol/L (135-145)
[2017-02-03 04:17] LABS: ARTERIAL BLD GAS O2 SATURATION 96.6 % (90.0-100.0); ARTERIAL BLOOD GAS CARBOXY HB 0.5 %sat (0.0-9.0); ARTERIAL BLOOD GAS HCO3 24.5 mmol/L; ARTERIAL BLOOD GAS MET HB 1.1 %sat (0.0-2.0); ARTERIAL BLOOD GAS PCO2 39.2 mmHg (35.0-45.0); ARTERIAL BLOOD GAS pH 7.404 (7.350-7.450)
[2017-02-03 04:20] LABS: ARTERIAL BLOOD GAS ALLEN TEST NORMAL; ARTERIAL BLOOD GAS ART SITE RIGHT RADIAL; ARTERIAL BLOOD GAS DELIVERY VENT; ARTERIAL BLOOD GAS VENT MODE AC; ARTERIAL DRAW? YES
[2017-02-03 05:08] LABS: BASOPHIL% 0.2 % (0-2.5); HEMATOCRIT 28.1 % (35.0-45.0); LYMPHOCYTE# 1.6 X10e3 (1.0-3.5); LYMPHOCYTE% 13.2 % (17.0-45.0); MEAN CELL VOLUME 83.9 FL (83-96); MEAN CORPUSCULAR HEMOGLOBIN 26.9 PG (28-34); MEAN PLATELET VOLUME 8.8 FL (6.5-11.5); MONOCYTE# 0.8 X10e3 (0-1.0); MONOCYTE% 6.6 % (3.0-12.0); NEUTROPHIL# 9.9 X10e3 (1.5-7.1); PLATELET COUNT 210 X10e3 (140-420); RED BLOOD COUNT 3.35 X10e (3.90-5.30); RED CELL DISTRIBUTION WIDTH 18.3 % (11.0-15.5); WHITE BLOOD COUNT 12.3 X10e3 (4.0-10.5)
[2017-02-03 05:26] LABS: DIFF IND NO
[2017-02-03 05:59] LABS: ALBUMIN SERUM 1.6 g/dL (3.5-5.0); ALKALINE PHOSPHATASE 72 U/L (32-92); ALT (SGPT) 13 U/L (10-40); AST (SGOT) 18 U/L (10-42); BILIRUBIN,TOTAL 0.2 mg/dL (0.2-2.0); BLOOD UREA NITROGEN 6 mg/dL (9-23); CALCIUM SERUM 7.7 mg/dL (8.4-10.2); CARBON DIOXIDE 23 mmol/L (22-31); CHLORIDE 104 mmol/L (100-111); CREATININE SERUM 0.5 mg/dL (0.6-1.4); GLOM FILT RATE Estimated ABOVE60 mL/min (>60); GLUCOSE FASTING 127 mg/dL (70-110); MAGNESIUM 1.8 mg/dL (1.6-3.0); POTASSIUM 3.8 mmol/L (3.5-5.1); PROTEIN TOTAL SERUM 5.3 g/dL (6.0-8.3); SODIUM 133 mmol/L (135-145)
[2017-02-04 00:28] LABS: BASOPHIL# 0.1 X10e3 (0-0.3); BASOPHIL% 0.6 % (0-2.5); HEMATOCRIT 28.4 % (35.0-45.0); HEMOGLOBIN 9.1 gm/dL (12.0-16.0); LYMPHOCYTE# 1.5 X10e3 (1.0-3.5); LYMPHOCYTE% 11.9 % (17.0-45.0); MEAN CELL VOLUME 83.9 FL (83-96); MEAN CORPUSCULAR HEMOGLOBIN 26.7 PG (28-34); MEAN CORPUSCULAR HGB CONC 31.9 g/dL (30-36); MEAN PLATELET VOLUME 8.4 FL (6.5-11.5); MONOCYTE# 0.7 X10e3 (0-1.0); MONOCYTE% 5.4 % (3.0-12.0); NEUTROPHIL# 10.2 X10e3 (1.5-7.1); NEUTROPHIL% 82.1 % (40-75); PLATELET COUNT 246 X10e3 (140-420); RED BLOOD COUNT 3.39 X10e (3.90-5.30); WHITE BLOOD COUNT 12.4 X10e3 (4.0-10.5)
[2017-02-04 00:29] LABS: DIFF IND NO
[2017-02-04 01:08] LABS: CK TOTAL 7 IU/L (26-140)
[2017-02-04 04:07] LABS: ARTERIAL BLD GAS O2 SATURATION 96.5 % (90.0-100.0); ARTERIAL BLOOD GAS CARBOXY HB 0.8 %sat (0.0-9.0); ARTERIAL BLOOD GAS HCO3 24.1 mmol/L; ARTERIAL BLOOD GAS PCO2 35.3 mmHg (35.0-45.0); ARTERIAL BLOOD GAS pH 7.442 (7.350-7.450)
[2017-02-04 04:09] LABS: ARTERIAL BLOOD GAS ALLEN TEST NORMAL; ARTERIAL DRAW? YES
[2017-02-04 04:10] LABS: ARTERIAL BLOOD GAS ART SITE RIGHT RADIAL; ARTERIAL BLOOD GAS DELIVERY VENT; ARTERIAL BLOOD GAS VENT MODE AC
[2017-02-04 04:32] LABS: ALBUMIN SERUM 1.7 g/dL (3.5-5.0); ALKALINE PHOSPHATASE 65 U/L (32-92); ALT (SGPT) 15 U/L (10-40); AST (SGOT) 23 U/L (10-42); BILIRUBIN,TOTAL 0.3 mg/dL (0.2-2.0); BLOOD UREA NITROGEN 9 mg/dL (9-23); CALCIUM SERUM 7.6 mg/dL (8.4-10.2); CARBON DIOXIDE 24 mmol/L (22-31); CHLORIDE 109 mmol/L (100-111); CREATININE SERUM 0.4 mg/dL (0.6-1.4); GLOM FILT RATE Estimated ABOVE60 mL/min (>60); GLUCOSE FASTING 141 mg/dL (70-110); MAGNESIUM 1.8 mg/dL (1.6-3.0); POTASSIUM 3.5 mmol/L (3.5-5.1); PROTEIN TOTAL SERUM 5.3 g/dL (6.0-8.3); SODIUM 139 mmol/L (135-145)
[2017-02-04 15:04] LABS: ARTERIAL BLD GAS O2 SATURATION 87.8 % (90.0-100.0); ARTERIAL BLOOD GAS CARBOXY HB 0.9 %sat (0.0-9.0); ARTERIAL BLOOD GAS HCO3 27.2 mmol/L; ARTERIAL BLOOD GAS MET HB 1.1 %sat (0.0-2.0); ARTERIAL BLOOD GAS PCO2 35.4 mmHg (35.0-45.0); ARTERIAL BLOOD GAS pH 7.493 (7.350-7.450)
[2017-02-04 15:06] LABS: ARTERIAL BLOOD GAS ALLEN TEST NORMAL; ARTERIAL BLOOD GAS ART SITE LEFT RADIAL; ARTERIAL BLOOD GAS PO2 53.5 mmHg (80.0-100); ARTERIAL BLOOD GAS VENT MODE CPAP; ARTERIAL DRAW? YES
[2017-02-04 15:33] LABS: BODY FLUID SOURCE BRONCHIAL LAVAGE
[2017-02-04 15:34] LABS: BF TOTAL NUCLEATED CELL COUNT 333 CMM (0-100); BODY FLUID APPEARANCE HAZY; BODY FLUID RBC <10000 CMM
[2017-02-05 04:06] LABS: ARTERIAL BLD GAS O2 SATURATION 97.2 % (90.0-100.0); ARTERIAL BLOOD GAS CARBOXY HB 0.5 %sat (0.0-9.0); ARTERIAL BLOOD GAS MET HB 0.6 %sat (0.0-2.0); ARTERIAL BLOOD GAS PCO2 37.9 mmHg (35.0-45.0); ARTERIAL BLOOD GAS PO2 97.9 mmHg (80.0-100); ARTERIAL BLOOD GAS pH 7.461 (7.350-7.450)
[2017-02-05 04:10] LABS: ARTERIAL BLOOD GAS ALLEN TEST NORMAL; ARTERIAL BLOOD GAS ART SITE RIGHT RADIAL; ARTERIAL BLOOD GAS DELIVERY VENT; ARTERIAL BLOOD GAS VENT MODE AC; ARTERIAL DRAW? YES
[2017-02-05 05:21] LABS: HEMATOCRIT 28.9 % (35.0-45.0); HEMOGLOBIN 9.3 gm/dL (12.0-16.0); LYMPHOCYTE# 1.2 X10e3 (1.0-3.5); LYMPHOCYTE% 8.2 % (17.0-45.0); MEAN CELL VOLUME 84.4 FL (83-96); MEAN CORPUSCULAR HEMOGLOBIN 27.3 PG (28-34); MEAN CORPUSCULAR HGB CONC 32.3 g/dL (30-36); MONOCYTE# 0.6 X10e3 (0-1.0); NEUTROPHIL# 12.7 X10e3 (1.5-7.1); NEUTROPHIL% 87.8 % (40-75); PLATELET COUNT 279 X10e3 (140-420); RED BLOOD COUNT 3.43 X10e (3.90-5.30); RED CELL DISTRIBUTION WIDTH 17.4 % (11.0-15.5); WHITE BLOOD COUNT 14.5 X10e3 (4.0-10.5)
[2017-02-05 05:28] LABS: DIFF IND NO
[2017-02-05 06:30] LABS: ALBUMIN SERUM 1.7 g/dL (3.5-5.0); ALKALINE PHOSPHATASE 66 U/L (32-92); ALT (SGPT) 16 U/L (10-40); AST (SGOT) 21 U/L (10-42); BILIRUBIN,TOTAL 0.4 mg/dL (0.2-2.0); BLOOD UREA NITROGEN 13 mg/dL (9-23); CALCIUM SERUM 7.7 mg/dL (8.4-10.2); CARBON DIOXIDE 26 mmol/L (22-31); CHLORIDE 105 mmol/L (100-111); CREATININE SERUM 0.4 mg/dL (0.6-1.4); GLOM FILT RATE Estimated ABOVE60 mL/min (>60); GLUCOSE FASTING 143 mg/dL (70-110); POTASSIUM 3.4 mmol/L (3.5-5.1); PROTEIN TOTAL SERUM 5.2 g/dL (6.0-8.3); SODIUM 141 mmol/L (135-145)
[2017-02-05 11:13] LABS: ARTERIAL BLOOD GAS CARBOXY HB 0.7 %sat (0.0-9.0); ARTERIAL BLOOD GAS HCO3 28.5 mmol/L; ARTERIAL BLOOD GAS MET HB 0.6 %sat (0.0-2.0); ARTERIAL BLOOD GAS PCO2 34.9 mmHg (35.0-45.0)
[2017-02-05 11:15] LABS: ARTERIAL BLOOD GAS ALLEN TEST NORMAL; ARTERIAL BLOOD GAS ART SITE LEFT RADIAL; ARTERIAL BLOOD GAS VENT MODE CPAP; ARTERIAL DRAW? YES
[2017-02-06 02:17] LABS: HEMOGLOBIN 9.4 gm/dL (12.0-16.0); MEAN CELL VOLUME 82.6 FL (83-96); MEAN CORPUSCULAR HEMOGLOBIN 26.9 PG (28-34); MEAN CORPUSCULAR HGB CONC 32.5 g/dL (30-36); MEAN PLATELET VOLUME 7.7 FL (6.5-11.5); RED BLOOD COUNT 3.51 X10e (3.90-5.30); RED CELL DISTRIBUTION WIDTH 17.2 % (11.0-15.5); WHITE BLOOD COUNT 12.6 X10e3 (4.0-10.5)
[2017-02-06 02:44] LABS: ALKALINE PHOSPHATASE 67 U/L (32-92); ALT (SGPT) 24 U/L (10-40); AST (SGOT) 35 U/L (10-42); BILIRUBIN,TOTAL 0.7 mg/dL (0.2-2.0); BLOOD UREA NITROGEN 8 mg/dL (9-23); CALCIUM SERUM 7.4 mg/dL (8.4-10.2); CARBON DIOXIDE 34 mmol/L (22-31); CHLORIDE 101 mmol/L (100-111); CREATININE SERUM 0.4 mg/dL (0.6-1.4); GLOM FILT RATE Estimated ABOVE60 mL/min (>60); GLUCOSE FASTING 118 mg/dL (70-110); PROTEIN TOTAL SERUM 5.8 g/dL (6.0-8.3); SODIUM 138 mmol/L (135-145)
[2017-02-06 02:45] LABS: POTASSIUM 2.3 mmol/L (3.5-5.1)
[2017-02-06 03:56] LABS: ARTERIAL BLD GAS O2 SATURATION 93.6 % (90.0-100.0); ARTERIAL BLOOD GAS CARBOXY HB 0.9 %sat (0.0-9.0); ARTERIAL BLOOD GAS HCO3 37.4 mmol/L; ARTERIAL BLOOD GAS MET HB 0.6 %sat (0.0-2.0); ARTERIAL BLOOD GAS PCO2 37.8 mmHg (35.0-45.0)
[2017-02-06 04:04] LABS: ARTERIAL BLOOD GAS ALLEN TEST NORMAL; ARTERIAL BLOOD GAS ART SITE LEFT RADIAL; ARTERIAL BLOOD GAS DELIVERY NASAL CANNULA; ARTERIAL BLOOD GAS PO2 66.6 mmHg (80.0-100); ARTERIAL BLOOD GAS pH 7.604 (7.350-7.450); ARTERIAL DRAW? YES
[2017-02-06 05:01] LABS: ARTERIAL BLD GAS O2 SATURATION 93.8 % (90.0-100.0); ARTERIAL BLOOD GAS CARBOXY HB 0.9 %sat (0.0-9.0); ARTERIAL BLOOD GAS HCO3 37.3 mmol/L; ARTERIAL BLOOD GAS MET HB 0.6 %sat (0.0-2.0)
[2017-02-06 05:02] LABS: ARTERIAL BLOOD GAS ALLEN TEST NORMAL; ARTERIAL BLOOD GAS ART SITE LEFT RADIAL; ARTERIAL BLOOD GAS DELIVERY NASAL CANNULA; ARTERIAL BLOOD GAS PO2 67.9 mmHg (80.0-100); ARTERIAL DRAW? YES
[2017-02-07 03:31] LABS: ARTERIAL BLD GAS O2 SATURATION 93.7 % (90.0-100.0); ARTERIAL BLOOD GAS CARBOXY HB 0.8 %sat (0.0-9.0); ARTERIAL BLOOD GAS HCO3 33.9 mmol/L; ARTERIAL BLOOD GAS MET HB 0.4 %sat (0.0-2.0); ARTERIAL BLOOD GAS PCO2 40.1 mmHg (35.0-45.0); ARTERIAL BLOOD GAS pH 7.535 (7.350-7.450)
[2017-02-07 03:33] LABS: ARTERIAL BLOOD GAS ALLEN TEST Y; ARTERIAL BLOOD GAS ART SITE LEFT RADIAL; ARTERIAL BLOOD GAS PO2 70.9 mmHg (80.0-100); ARTERIAL DRAW? YES
[2017-02-07 05:44] LABS: BASOPHIL# 0.1 X10e3 (0-0.3); BASOPHIL% 0.7 % (0-2.5); EOSINOPHIL% 0.4 % (0.0-7.0); HEMATOCRIT 30.4 % (35.0-45.0); HEMOGLOBIN 9.9 gm/dL (12.0-16.0); LYMPHOCYTE# 1.8 X10e3 (1.0-3.5); LYMPHOCYTE% 17.2 % (17.0-45.0); MEAN CELL VOLUME 83.5 FL (83-96); MEAN CORPUSCULAR HEMOGLOBIN 27.3 PG (28-34); MEAN CORPUSCULAR HGB CONC 32.6 g/dL (30-36); MEAN PLATELET VOLUME 7.5 FL (6.5-11.5); MONOCYTE# 0.5 X10e3 (0-1.0); MONOCYTE% 5.1 % (3.0-12.0); NEUTROPHIL# 7.8 X10e3 (1.5-7.1); NEUTROPHIL% 76.6 % (40-75); PLATELET COUNT 343 X10e3 (140-420); RED BLOOD COUNT 3.64 X10e (3.90-5.30); RED CELL DISTRIBUTION WIDTH 17.6 % (11.0-15.5); WHITE BLOOD COUNT 10.2 X10e3 (4.0-10.5)
[2017-02-07 05:50] LABS: DIFF IND NO
[2017-02-07 06:30] LABS: ALBUMIN SERUM 1.8 g/dL (3.5-5.0); ALKALINE PHOSPHATASE 56 U/L (32-92); ALT (SGPT) 19 U/L (10-40); AST (SGOT) 20 U/L (10-42); BILIRUBIN,TOTAL 0.4 mg/dL (0.2-2.0); BLOOD UREA NITROGEN 5 mg/dL (9-23); BUN/CREATININE RATIO 16.66; CARBON DIOXIDE 32 mmol/L (22-31); CHLORIDE 101 mmol/L (100-111); CREATININE SERUM 0.3 mg/dL (0.6-1.4); GLOM FILT RATE Estimated ABOVE60 mL/min (>60); GLUCOSE FASTING 87 mg/dL (70-110); MAGNESIUM 1.9 mg/dL (1.6-3.0); POTASSIUM 3.2 mmol/L (3.5-5.1); PROTEIN TOTAL SERUM 5.5 g/dL (6.0-8.3); SODIUM 143 mmol/L (135-145)
[2017-02-07 16:19] LABS: HA AB IGM (HEPPAN) Nonreactive (Nonreactive); HB CORE AB IGM (HEPPAN) Reactive (Nonreactive); HB S AG (HEPPAN) Nonreactive (Nonreactive); HEP C AB (HEPPAN) Reactive (Nonreactive)
== END 2017-02-07 11:29 | DRG 870 ==
LOC: CED 18:48 → CEDOF 01-29 06:40 → CICCU2 01-29 21:00 → C5B 02-06 21:27
PROVIDERS: Family Medicine; Internal Medicine; Internal Medicine Cardiovascular Disease; Internal Medicine Pulmonary Disease; Nurse Practitioner; Nurse Practitioner Family
PROC: 30243N1 Transfusion of Nonautologous Red Blood Cells into Central Vein, Percutaneous Approach (ICD-10-PCS; 2017-01-29)
PROC: B24BZZZ Ultrasonography of Heart with Aorta (ICD-10-PCS; 2017-01-29)
PROC: 02H633Z Insertion of Infusion Device into Right Atrium, Percutaneous Approach (ICD-10-PCS; 2017-01-29)
PROC: B244ZZZ Ultrasonography of Right Heart (ICD-10-PCS; 2017-01-29)
PROC: 0S9 Lower Joints, Drainage (ICD-10-PCS; 2017-01-30)
PROC: 0BH18EZ Insertion of Endotracheal Airway into Trachea, Via Natural or Artificial Opening Endoscopic (ICD-10-PCS; principal; 2017-01-31)
PROC: 5A1955Z Respiratory Ventilation, Greater than 96 Consecutive Hours (ICD-10-PCS; 2017-01-31)
PROC: 0DH67UZ Insertion of Feeding Device into Stomach, Via Natural or Artificial Opening (ICD-10-PCS; 2017-01-31)
PROC: 0B968ZX Drainage of Right Lower Lobe Bronchus, Via Natural or Artificial Opening Endoscopic, Diagnostic (ICD-10-PCS; 2017-02-04)
DX: A41.02 Sepsis due to Methicillin resistant Staphylococcus aureus (principal); R65.21 Severe sepsis with septic shock; J96.01 Acute respiratory failure with hypoxia; I33.0 Acute and subacute infective endocarditis; E43 Unspecified severe protein-calorie malnutrition; I76 Septic arterial embolism; D69.6 Thrombocytopenia, unspecified; E87.1 Hypo-osmolality and hyponatremia; J15.212 Pneumonia due to Methicillin resistant Staphylococcus aureus; M00.052 Staphylococcal arthritis, left hip; L02.416 Cutaneous abscess of left lower limb; Z68.1 Body mass index [BMI] 19.9 or less, adult; F33.2 Major depressive disorder, recurrent severe without psychotic features; F11.20 Opioid dependence, uncomplicated; I50.20 Unspecified systolic (congestive) heart failure; B95.62 Methicillin resistant Staphylococcus aureus infection as the cause of diseases classified elsewhere; F17.210 Nicotine dependence, cigarettes, uncomplicated; R16.1 Splenomegaly, not elsewhere classified; E87.6 Hypokalemia; E83.42 Hypomagnesemia; D64.9 Anemia, unspecified; F15.10 Other stimulant abuse, uncomplicated; Z87.01 Personal history of pneumonia (recurrent); F10.10 Alcohol abuse, uncomplicated; Z91.040 Latex allergy status; Z98.82 Breast implant status
CPT/HCPCS: 36415; 36600; 71010; 71020; 71250; 72158; 72197; 74000; 74176; 77012; 80048; 80053; 80074; 80076; 80202; 80307; 81003; 82550; 82803; 82947; 83605; 83735; 84100; 84132; 84484; 84703; 85025; 85027; 85610; 85730; 86850; 86900; 86901; 86923; 87040; 87070; 87077; 87086; 87102; 87106; 87116; 87186; 87205; 87206; 87252; 87254; 87278; 87491; 87522; 87591; 87806; 87808; 87905; 88108; 88302; 88312; 89051; 92526; 92610; 93005; 93306; 94002; 94003; 94760; 94761; 96374; 96375; 97161; 97165; 99285; A9577; J0171; J0330; J0696; J0878; J1170; J1650; J1720; J1940; J2020; J2060; J2250; J2270; J2543; J3010; J3370; J3475; P9016